=== PATIENT | female | born 1960 | race Caucasian/White ===

== ENCOUNTER 2018-11-22 04:52 | Inpatient (IN) ==
--- NOTE | 2018-10-18 14:39 | PAT Medication Instructions ---
Medication Instructions Date of Service October 18, 2018 Home Medications calcium carbonate-vitamin D3 [Calcium 600 + D(3)] 1 cap PO DAILY cholecalciferol (vitamin D3) [Vitamin D3] 2,000 unit PO DAILY ferrous sulfate [iron] 325 mg PO Q2D fish,bora,flax oils-om3,6,9no1 [Triple [place] 3-6-9] 1 cap PO DAILY levothyroxine 137 mcg PO QAM melatonin 3 mg PO HS PRN multivitamin 1 tab PO DAILY omeprazole 20 mg PO QAM sertraline 150 mg PO HS STOP taking 2 weeks before surgery (or as soon as possible if surgery is within 2 weeks) fish,bora,flax oils-om3,6,9no1 [Triple [place] 3-6-9] 1 cap PO DAILY DO NOT take the morning of surgery calcium carbonate-vitamin D3 [Calcium 600 + D(3)] 1 cap PO DAILY cholecalciferol (vitamin D3) [Vitamin D3] 2,000 unit PO DAILY ferrous sulfate [iron] 325 mg PO Q2D multivitamin 1 tab PO DAILY Take morning of surgery With a small sip of water, OTHERWISE NOTHING TO EAT OR DRINK AFTER MIDNIGHT: levothyroxine 137 mcg PO QAM omeprazole 20 mg PO QAM Take evening before surgery melatonin 3 mg PO HS PRN (if needed) sertraline 150 mg PO HS Other Notes If you have any questions please call us at [phone] or [phone] or [phone] or [phone]
--- NOTE | 2018-10-21 10:00 | Anesthesiology Consultation ---
Date of Service October 21, 2018 Assessment & Plan (1) Encounter for pre-operative examination: Chart Review Chart Review: Acceptable Risk for Surgery and Patient seen in Pre Admission Testing Teaching & Discussion Instructed NPO after midnight before surgery, except medications with 15 cc of water. Medication instructions provided according to the PAT guidelines. History Surgery Operation Date: 11/22/18 07:00 Proposed Procedures p Left Anterior Total Hip Arthroplasty - Frankie Kline DO Height/Weight Height: 5 ft 5.5 in Weight: 86.6 kg Allergies Allergy/AdvReac Type Severity Reaction Status Date / Time meloxicam Allergy Intermediate Rash Verified 10/14/18 11:47 Sulfa (Sulfonamide Allergy Unknown Rash Verified 10/14/18 11:47 Antibiotics) Medications Home Medications Medication Instructions Recorded Confirmed Last Taken calcium carbonate-vitamin D3 1 cap PO DAILY 10/14/18 10/14/18 Unknown [Calcium 600 + D(3)] cholecalciferol (vitamin D3) 2,000 unit PO DAILY 10/14/18 10/14/18 Unknown [Vitamin D3] ferrous sulfate [iron] 325 mg PO Q2D 10/14/18 10/14/18 Unknown fish,bora,flax oils-om3,6,9no1 1 cap PO DAILY 10/14/18 10/14/18 Unknown [Triple [place] 3-6-9] levothyroxine 137 mcg PO QAM 10/14/18 10/14/18 Unknown melatonin 3 mg PO HS PRN 10/14/18 10/14/18 Unknown multivitamin 1 tab PO DAILY 10/14/18 10/14/18 Unknown omeprazole 20 mg PO QAM 10/14/18 10/14/18 Unknown sertraline 150 mg PO HS 10/14/18 10/14/18 Unknown Past Medical History Medical History Anemia Anxiety Chronic back pain GERD (gastroesophageal reflux disease) Hypothyroidism Obesity Osteoarthritis Exercise / Class Metabolic Activity II 4-5 Yardwork/Stairs/Walk up hill (Limited by hip pain lately, but denies CP or SOB with 1 FOS, does daily at home) Past Family History Family History Uncle Family history of diabetes mellitus Grandfather (Paternal) FHx: prostate cancer Past Surgical History Surgical History History of bilateral tubal ligation History of breast biopsy (-) History of section History of colonoscopy History of esophagogastroduodenoscopy (EGD) Past Anesthesia History No Hx of Anesthesia Complications and No Family Hx of Anesthesia Complications History of PONV No Hx of PONV and No Hx of Motion Sickness Social History Smoking Status: Never smoker Do You Dip or Chew Tobacco: No Hx Alcohol Use: Yes Alcohol type: wine and hard liquor alcohol intake frequency: a few times a week Hx Substance Use: No substance use type: does not use Review of Systems Pt denies any recent chest pain, shortness of breath, palpitations, cough, fever or URI. Physical Exam Vital Signs BP: 117/77 P: 68bpm SPO2: 96% RA T: 97.9 F R: 16 ENMT Mouth: no dental restorations, no chipped teeth and no loose teeth Thyromental Distance: < 3.5 Finger Breadths (3) Mallampati Class: I Neck normal visual inspection; neck extension not limited Respiratory normal respiratory effort Auscultation: lungs clear to auscultation bilaterally Cardiovascular Rate/Rhythm: regular rate and regular rhythm Heart Sounds: no murmur Extremities: no edema Testing Laboratory Results 10/21/18 10:10 10/21/18 10:10 PT 10.9 Seconds (9.0-12.0) 10/21/18 10:10 INR 1.1 (0.9-1.1) 10/21/18 10:10 APTT 26.5 Seconds (21.0-31.0) 10/21/18 10:10 Urine Color Yellow 10/21/18 10:10 Urine Appearance Clear (Clear) 10/21/18 10:10 Urine pH 5.5 (4.5-7.5) 10/21/18 10:10 Ur Specific [place] 1.015 (1.000-1.030) 10/21/18 10:10 Urine Protein Negative (Negative) 10/21/18 10:10 Urine Glucose (UA) Negative (Negative) 10/21/18 10:10 Urine Ketones Negative (Negative) 10/21/18 10:10 Urine Nitrite Negative (Negative) 10/21/18 10:10 Ur Leukocyte Esterase Negative (Negative) 10/21/18 10:10 Blood Type A Positive 10/21/18 10:10 Antibody Screen NEGATIVE 10/21/18 10:10 Electrocardiogram Date: 10/21/18 Findings: + NSR @ (63bpm) *unconfirmed Chest X-Ray Date: 10/21/18 Findings: no mass IMPRESSION: 1. No acute cardiopulmonary findings. 2. Suspected hiatal hernia.
--- NOTE | 2018-10-21 10:26 | XRay Report ---
XR chest Pre-admission PA/Lat CLINICAL HISTORY: Preoperative evaluation. COMPARISON STUDY: No previous studies for comparison. FINDINGS: Lung volumes are normal. Lungs are clear. There is no pneumothorax or pleural effusion. Car diac size is normal. Mediastinal contours are normal. There is no evidence for pulmonary edema. Linea r left basilar opacity suggests atelectasis or scarring. Lower mediastinal contour abnormality favors a hiatal hernia. IMPRESSION: 1. No acute cardiopulmonary findings. 2. Suspected hiatal hernia. Electronically signed by: Joseph Mckeon M.D. 10/21/2018 10:24 AM
[2018-10-21 11:06] LABS: Appearance Urine Clear (Clear); Basophils # (auto) 0.01 K/uL (0-0.2); Basophils % (auto) 0.2 %; Bilirubin Urine Negative (Negative); Blood Urine Negative (Negative); Color Urine Yellow; Eosinophils # (auto) 0.12 K/uL (0-0.5); Eosinophils % (auto) 2.7 %; Glucose Urine UA Negative (Negative); Hematocrit (blood only) 37.3 % (37-47); Hemoglobin 12.8 g/dL (12.0-16.0); Ketones Urine Negative (Negative); Leukocyte Esterase Urine Negative (Negative); Lymphocytes # (auto) 1.47 K/uL (1.2-3.4); Lymphocytes % (auto) 33.6 %; Mean Corpuscular Hemoglobin 27.5 pg (25-34); Mean Corpuscular Hgb Conc 34.3 g/dL (32-36); Monocytes # (auto) 0.41 K/uL (0.11-0.59); Monocytes % (auto) 9.4 %; Neutrophils # (auto) 2.36 K/uL (1.4-6.5); Neutrophils % (auto) 54.1 %; Nitrite Urine Negative (Negative); Platelet Count 212 K/uL (130-400); Protein Urine Negative (Negative); RDW Coefficient of Variation 14.9 % (11.5-14.5); RDW Standard Deviation 43.7 fL (36.4-46.3); Red Blood Count 4.66 M/uL (4.2-5.4); Specific Gravity Urine 1.015 (1.000-1.030); Urobilinogen Urine Negative (Negative); White Blood Count 4.37 K/uL (4.8-10.8); pH Urine 5.5 (4.5-7.5)
[2018-10-21 11:12] LABS: BUN Creatinine Ratio 30.2 (10-20); Calcium 8.8 mg/dl (8.5-10.1); Creatinine Clr Calc Pharmacy 76.6 ml/min; Est GFR (African American) 82.8; Est GFR (Non-African American) 71.5; Potassium 4.1 mmol/L (3.5-5.1)
[2018-10-21 11:18] LABS: INR 1.1 (0.9-1.1); Partial Thromboplastin Time 26.5 Seconds (21.0-31.0); Prothrombin Time 10.9 Seconds (9.0-12.0)
--- NOTE | 2018-11-21 15:03 | History & Physical Report ---
Date of Service November 21, 2018 Assessment & Plan (1) Osteoarthritis of left hip: We will proceed with a left anterior total hip arthroplasty. Postoperatively she will be started on aspirin for DVT prophylaxis. She will be kept overnight for postoperative medical management. She plans to use [facility] upon discharge. Present on Admission?: Yes History of Present Illness Chief Complaint: Primary osteoarthritis of the left hip Primary Care Provider: Sohan Downey MD Shara is a pleasant 58-year-old female who is been complaining of chronic increasing left hip and groin pain. X-rays and clinical examination have been diagnostic for primary osteoarthritis of the left hip. After failing conservative treatment, she has elected to proceed with a left anterior total hip arthroplasty. Allergies Allergy/AdvReac Type Severity Reaction Status Date / Time meloxicam Allergy Intermediate Rash Verified 10/14/18 11:47 Sulfa (Sulfonamide Allergy Unknown Rash Verified 10/14/18 11:47 Antibiotics) Home Medications Home Medications Medication Instructions Recorded Confirmed Type calcium carbonate-vitamin D3 1 cap PO DAILY 10/14/18 10/14/18 History [Calcium 600 + D(3)] cholecalciferol (vitamin D3) 2,000 unit PO DAILY 10/14/18 10/14/18 History [Vitamin D3] ferrous sulfate [iron] 325 mg PO Q2D 10/14/18 10/14/18 History fish,bora,flax oils-om3,6,9no1 1 cap PO DAILY 10/14/18 10/14/18 History [Triple [place] 3-6-9] levothyroxine 137 mcg PO QAM 10/14/18 10/14/18 History melatonin 3 mg PO HS PRN 10/14/18 10/14/18 History multivitamin 1 tab PO DAILY 10/14/18 10/14/18 History omeprazole 20 mg PO QAM 10/14/18 10/14/18 History sertraline 150 mg PO HS 10/14/18 10/14/18 History Past Med/Surg History Medical History Anemia Anxiety Chronic back pain GERD (gastroesophageal reflux disease) Hypothyroidism Obesity Osteoarthritis Surgical History History of bilateral tubal ligation History of breast biopsy (-) History of section History of colonoscopy History of esophagogastroduodenoscopy (EGD) Family History Uncle Family history of diabetes mellitus Grandfather (Paternal) FHx: prostate cancer Social History Preferred Language: Bulgarian Communication Ability: Effective Adjunct Psychology Instructor Required: No Beliefs That Will Affect Care: None Current Living Situation: Spouse Feels Safe at Home: Yes Smoking Status: Never smoker Second Hand Exposure: Yes (grandparents smoked) ; Hx Alcohol Use: Yes Alcohol type: wine and hard liquor Hx Substance Use: No Review of Systems All systems reviewed & are unremarkable except as noted in HPI & below Physical Exam Constitutional: WD/WN, vitals as above Eyes: PERRL, conjunctivae normal, anicteric sclerae ENMT: external ear and nose normal, oropharynx normal Neck: trachea midline, no thyromegaly Respiratory: normal respiratory effort Cardiovascular: RRR, no murmur, no edema Gastrointestinal (Abdomen): normal bowel sounds, soft, nontender, no hepat osplenomegaly Musculoskeletal: Physical examination of the left hip reveals decreased range of motion with flexion, internal and external rotation. There is significant groin pain with forced internal rotation of the hip his leg lengths are essentially equal. Psychiatric: A+Ox3, euthymic affect Results & Data Diagnostic Findings Radiographs of the left hip and pelvis demonstrate advanced osteoarthritis with joint space narrowing osteophyte formation and [id number] articulation.
[2018-11-22] MEDS ORDERED: ROPIVACAINE 0.5% HCL/PF 150 MG, BUPIVACAINE 0.5% MPF 30 ML, EPINEPHrine 30MG/30ML (OR U... INFIL SCH (06:00)
[2018-11-22] MEDS ORDERED: LR 500ML BOLUS, THEN 15ML/HR IV SCH (06:00)
[2018-11-22] MEDS ORDERED: CEFAZOLIN 2000MG 2,000 MG/15 ML SYR IV SCH (06:00)
[2018-11-22] MEDS ORDERED: GABAPENTIN 300 MG CAP PO SCH (06:00)
[2018-11-22] MEDS ORDERED: TRANEXAMIC ACID 1,000 MG **IV Pre-op IV SCH (06:00)
[2018-11-22] MEDS ORDERED: ACETAMINOPHEN 500 MG TAB PO SCH (06:00)
[2018-11-22] MEDS ORDERED: LR 60ML/HR IV SCH (06:00)
[2018-11-22] MEDS ORDERED: FAMOTIDINE 20 MG TAB PO SCH (06:00)
[2018-11-22] MEDS ORDERED: BUPIVACAINE 0.5 % 5 MG/1 ML PF 10ML VIAL ONE (06:20)
[2018-11-22] MEDS ORDERED: TRANEXAMIC ACID 1,000 MG **IV Intra-op IV SCH (06:30)
[2018-11-22] MEDS ORDERED: MIDAZOLAM HCL 1 MG/ML 2ML VIAL ONE ×2 (06:38→06:56)
[2018-11-22] MEDS ORDERED: fentaNYL citrate 100 MCG/2 ML VIAL ONE (06:38)
[2018-11-22] MEDS ORDERED: PROPOFOL IV EMULSION 10 MG/ML 20 ML VIAL IV ONE (06:39)
[2018-11-22] MEDS ORDERED: LIDOCAINE HCL 2% 2 ML VIAL/AMP(20MG/ML) INFIL ONE (06:39)
[2018-11-22] MEDS ORDERED: ORTHO JOINT ANESTHETIC ONE (06:43)
--- NOTE | 2018-11-22 06:49 | History & Physical Bridge Note ---
Date of Service November 22, 2018 History & Physical Bridge Note I have examined the patient, reviewed the History & Physical and in the interval since the performance of the History & Physical I have noted the following changes of clinical significance: no changes noted
[2018-11-22] MEDS ORDERED: ePHEDrine sulfate 50 MG/ML AMP IV PRN (06:52)
[2018-11-22] MEDS ORDERED: fentaNYL citrate 100 MCG/2 ML VIAL IV PRN (06:52)
[2018-11-22] MEDS ORDERED: ONDANSETRON INJ 2 MG/ML 2 ML VIAL IV PRN ×2 (06:52→10:44)
[2018-11-22] MEDS ORDERED: ATROPINE SULFATE 0.1 MG/ML 10ML SYR IV PRN (06:52)
--- NOTE | 2018-11-22 08:08 | Operative Report ---
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 X-rays and clinical examination were diagnostic for primary osteoarthritis of the left hip. After failing conservative treatment, she elected to proceed with a left total hip arthroplasty. Description of Procedure Implants used Biomet Taperloc total hip arthroplasty system with a size 6 standard offset Taperloc stem, a 50 mm G7 cup with a 25mm screw, an E1 polyethylene liner, a 36 mm ceramic head with a 0 neck. Patient arrived at the hospital for the above procedure. They were seen in the preoperative holding area and the operative extremity was identified and signed. They were given a spinal anesthetic. They were given a preoperative antibiotic and TXA. They were taken back To the operating room and laid on the table in the supine position. The leg was brought out through a Puristst leg positioner. The hip was then prepped and draped in sterile fashion. A timeout was done and the patient in upper extremities properly identified. An anterior approach was used. Dissection was taken down through the fascia and the tensor muscle belly was retracted laterally and the rectus was retracted medially. The circumflex vessels were identified and ligated. The capsule was then incised and tagged for later repair. The femoral neck was then cut and the femoral head was removed. The acetabulum was exposed. Time was spent doing a complete circumferential labral release. Sequential reaming of the acetabulum up to a size 49 reamer was done. Final reamings were done under fluoroscopy to ensure appropriate version. A Biomet 50 mm G7 cup was then impacted into place. A single 25 mm screw was placed. The E1 polyethylene liner was then snapped into place. Surrounding soft tissues were then injected with 100 cc of an orthopedic pain control cocktail. The proximal femur was then exposed. Sequential broaching up to a size 6 broach was done. Off that broach a size 36 head with a 0 neck was trialed. The hip was reduced and fluoroscopic images showed anatomic alignment of the implants in acceptable length. The broach was removed. The final size 6 standard offset Taperloc stem was then impacted into place. A ceramic 36 mm head with a 0 neck was then impacted into place in the hip was reduced. Final fluoroscopic images showed anatomic reduction of the hip. The capsule was then closed with #1 Vicryl suture. A dilute betadyne lavage was then done for 3 minutes. The joint was then irrigated with normal saline solution. The fascia was closed with #1 PDS suture. Skin was closed with 2-0 Vicryl, kanu, and a Pamela VAC dressing. The patient was then transferred to a hospital bed and taken to the post anesthesia care unit in stable condition. They tolerated the procedure well. I attest to the content of the Intraoperative Record and any orders documented therein. Any exceptions are noted below.
[2018-11-22] MEDS ORDERED: PHENYLEPHRINE 100MCG/ML 5ML SYR ONE (08:49)
--- NOTE | 2018-11-22 09:04 | Fluoroscopy Report ---
FL hip LT 1V CLINICAL HISTORY: LEFT ANTERIOR HIP COMPARISON STUDY: Pelvis and left hip radiographs August 09, 2018. FLUOROSCOPY TIME: 19 seconds. FLUOROSCOPIC IMAGES: 2. FINDINGS: These images demonstrate expected findings during a total left hip arthroplasty. The hardwa re is intact. No fracture is visualized by fluoroscopy. There are no unexpected radiopaque foreign zaina dies. IMPRESSION: Expected findings during total left hip arthroplasty. Electronically signed by: Joseph Mckeon M.D. 11/22/2018 9:02 AM
--- NOTE | 2018-11-22 09:17 | XRay Report ---
XR hip 1V LT w pelvis CLINICAL HISTORY: Total left hip arthroplasty. COMPARISON: Pelvis and left hip radiographs August 09, 2018. FINDINGS: Alignment of the total left hip arthroplasty is anatomic. There is no fracture or unexpect ed radiopaque foreign body. Skin kanu are noted. Right acetabulum is shallow. There is severe join t space narrowing and osteophytosis of the right hip. IMPRESSION: 1. Expected findings following total left hip arthroplasty. 2. Right hip osteoarthritis with shallow acetabulum. Electronically signed by: Joseph Mckeon M.D. 11/22/2018 9:16 AM
--- NOTE | 2018-11-22 09:54 | Anesthesiology Progress Note ---
Date of Service November 22, 2018 Anesthesia Post Procedure Vital Signs Vital Signs: Temp Pulse Pulse Resp BP Pulse Ox 11/22/18 09:45 49 L 15 90/66 L 100 11/22/18 09:35 51 L 18 93/52 L 100 11/22/18 09:25 55 L 14 104/50 L 100 11/22/18 09:15 46 L 17 94/53 L 100 11/22/18 09:10 56 L 21 98 11/22/18 09:00 55 L 20 92/55 L 99 11/22/18 08:50 54 L 20 91/47 L 100 11/22/18 08:43 97.3 F L 55 L 15 96/54 L 97 11/22/18 05:46 97.9 F 67 18 133/80 96 Pain Intensity Left Hip: Pain Intensity: 6 Transfer of Care Handoff Completed per policy Notes Mental Status: alert / awake / arousable and participated in evaluation Patient Amnestic to Procedure: Yes Nausea / Vomiting: adequately controlled Pain: adequately controlled Airway Patency, RR, SpO2: stable & adequate BP & HR: stable & adequate Hydration State: stable & adequate Neuraxial Anesthesia: was administered and sensory block is resolving Anesthetic Complications: no major complications apparent and Pt Satisfied with anesthetic care
[2018-11-22] MEDS ORDERED: METOCLOPRAMIDE HCL INJ 5 MG/ML 2 ML VIAL IV PRN (10:44)
[2018-11-22] MEDS ORDERED: HYDROmorphone INJ 0.5 MG/0.5 ML SYR IV PRN (10:44)
[2018-11-22] MEDS ORDERED: SODIUM CHLORIDE 0.9% 1000ML 1,000 ML IV SCH (10:44)
[2018-11-22] MEDS ORDERED: MAGNESIUM HYDROXIDE SUSP 30 ML UDC PO PRN (10:44)
[2018-11-22] MEDS ORDERED: OXYCODONE HCL IR 5 MG TAB (IMMEDIATE RELEASE) PO PRN (10:44)
[2018-11-22] MEDS ORDERED: BISACODYL 10 MG SUPP PR PRN (10:44)
[2018-11-22] MEDS ORDERED: NALOXONE HCL 0.4 MG/1 ML VIAL/CARP IV PRN (10:44)
[2018-11-22] MEDS ORDERED: FERROUS SULFATE 325 MG TAB PO SCH (11:00)
[2018-11-22] MEDS: KETOROLAC 30 MG/ML VIAL IV SCH ×3 (12:32→23:48)
[2018-11-22] MEDS: ACETAMINOPHEN 500 MG TAB PO SCH ×2 (14:16→21:01)
[2018-11-22] MEDS: CEFAZOLIN 2000MG 2,000 MG/15 ML SYR IV SCH ×2 (16:47→23:48)
[2018-11-22] MEDS: ASPIRIN 81 MG ECTAB PO SCH (21:00)
[2018-11-22] MEDS ORDERED: SENNA 8.6 MG TAB PO SCH (21:00)
[2018-11-22] MEDS ORDERED: SERTRALINE HCL 100 MG TABLET PO SCH (21:00)
[2018-11-22] MEDS: DOCUSATE SODIUM 100 MG CAP PO SCH (21:01)
[2018-11-23] MEDS: KETOROLAC 30 MG/ML VIAL IV SCH (05:39)
[2018-11-23] MEDS: ACETAMINOPHEN 500 MG TAB PO SCH (05:39)
[2018-11-23] MEDS ORDERED: LEVOTHYROXINE SODIUM 137 MCG TABLET PO SCH (06:30)
[2018-11-23 06:38] LABS: Basophils # (auto) 0.01 K/uL (0-0.2); Basophils % (auto) 0.2 %; Eosinophils # (auto) 0.02 K/uL (0-0.5); Eosinophils % (auto) 0.4 %; Hematocrit (blood only) 34.2 % (37-47); Hemoglobin 11.4 g/dL (12.0-16.0); Immature Granulocytes # (auto) 0.01 K/uL (0.00-0.02); Immature Granulocytes % (auto) 0.2 %; Lymphocytes # (auto) 1.33 K/uL (1.2-3.4); Lymphocytes % (auto) 24.4 %; Mean Corpuscular Hemoglobin 26.9 pg (25-34); Mean Corpuscular Hgb Conc 33.3 g/dL (32-36); Mean Corpuscular Volume 80.7 fL (80-100); Mean Platelet Volume 9.5 fL (7.4-10.4); Monocytes # (auto) 0.54 K/uL (0.11-0.59); Monocytes % (auto) 9.9 %; Neutrophils # (auto) 3.55 K/uL (1.4-6.5); Neutrophils % (auto) 64.9 %; Platelet Count 173 K/uL (130-400); RDW Coefficient of Variation 14.7 % (11.5-14.5); RDW Standard Deviation 43.4 fL (36.4-46.3); Red Blood Count 4.24 M/uL (4.2-5.4); White Blood Count 5.46 K/uL (4.8-10.8)
[2018-11-23 07:12] LABS: Calcium 8.6 mg/dl (8.5-10.1); Creatinine Clr Calc Pharmacy 76.4 ml/min; Est GFR (Non-African American) 72.5; Potassium 3.9 mmol/L (3.5-5.1)
[2018-11-23] MEDS: DOCUSATE SODIUM 100 MG CAP PO SCH (08:23)
[2018-11-23] MEDS: ASPIRIN 81 MG ECTAB PO SCH (08:23)
--- NOTE | 2018-11-23 08:27 | Orthopedic Progress Note ---
Date of Service November 23, 2018 Assessment & Plan (1) Osteoarthritis of left hip: Overall she is doing very well. She is not having much pain in the left hip. She will be seen by physical therapy today for ambulation and range of motion exercises. She is on aspirin for DVT prophylaxis. She will be discharged home later this morning with [facility]. She will follow-up with orthopedics in 2 weeks. Present on Admission?: Yes Subjective Savanna was seen and examined at bedside this morning. Overall she is doing very well. She is happy with her progress. She is gotten the feeling back in her leg. She still is a little numbness on the top of her quad but she is been ambulating. She has no complaints. Physical Exam Musculoskeletal: On physical examination of the left hip, the Pamela VAC dressings to suction. Her leg lengths are equal. She has active dorsiflexion and plantarflexion of her left ankle. Sensations intact. Results & Data Vital Signs (Past 12 Hours) Vital Signs Temp Pulse Resp BP Pulse Ox 11/23/18 07:46 36.7 C 67 16 112/74 97 11/23/18 03:23 37.1 C 69 16 129/78 96 11/22/18 23:12 36.7 C 68 16 114/73 97 Laboratory Results H & H 10/21/18 11/23/18 Range/Units 10:10 06:16 Hgb 12.8 11.4 L (12.0-16.0) g/dL Hct 37.3 34.2 L (37-47) % Coagulation 10/21/18 Range/Units 10:10 INR 1.1 (0.9-1.1) Diagnostic Findings Postoperative x-rays of the left hip show the prosthesis to be in anatomic a lignment without any evidence of fracture, dislocation, or loosening. PG Care Time/CCT Total # of Minutes Spent Total Time Spent with Patient: Total time spent is greater than 50% in coordination of care (as documented) at patient's floor/unit and/or counseling patient:
--- NOTE | 2018-11-23 08:29 | Discharge Summary ---
Date of Service November 23, 2018 Admission HPI Per Admitting Provider Shara is a pleasant 58-year-old female who is been complaining of chronic increasing left hip and groin pain. X-rays and clinical examination have been diagnostic for primary osteoarthritis of the left hip. After failing conservative treatment, she has elected to proceed with a left anterior total hip arthroplasty. Principal Diagnosis Left total hip arthroplasty Discharge Data Allergies Allergy/AdvReac Type Severity Reaction Status Date / Time meloxicam Allergy Intermediate Rash Verified 11/22/18 05:58 Sulfa (Sulfonamide Allergy Unknown Rash Verified 11/22/18 05:58 Antibiotics) Consultations 11/23/18 08:00 Consult Case Management - Discharge Planning Routine Procedures Performed Operation Date: 11/22/18 07:00 Actual Procedures p Left Anterior Total Hip Arthroplasty(Left) - Frankie Kline DO Ordered Studies 11/22/18 07:00 FL fluoroscopy <1hr Routine FL hip LT 1V Routine Hospital Course (1) Osteoarthritis of left hip: On November 22, 2018 Savanna arrived at [facility] and underwent a left anterior total hip arthroplasty without complication. She had a spinal anesthetic. Postoperatively she was started on aspirin for DVT prophylaxis and discharged to general orthopedic floors. Her hospital course was uneventful. On postop day #1 her H&H was stable and her pain was well controlled. She was able to participate well with physical therapy. She was then discharged home with [facility]. She will follow-up with orthopedics in 2 weeks. Total Time Total Time Spent Total Time Spent (In Minutes): 20 Discharge Plan Discharge Items Patient Disposition: Home - Home Health Services Reason For Visit: Left Hip Degenerative Joint Disease Discharge Diagnosis: Left total hip arthroplasty Activity: As commented below Non-emergency contact: Surgeon Call non-emergency contact if: your wound has increased redness and your wound has increased drainage Follow-up/Referrals: Sohan Downey MD [Primary Care Provider] - Diet: Regular Addtl Attending Provider Instructions: Activity and Therapy Recommendations: * If you are using [facility] then therapy will be provided at your home until they feel you have accomplished all of your goals. * If you are using [facility] then Physical Therapy will be provided until they feel you are ready to start Outpatient Physical Therapy. * If you are not using home therapy then Outpatient Physical Therapy should start about 3-5 days from your day of surgery. Therapy will last about 6-10 weeks * You were shown a series of exercises in the hospital. Do these exercises three times each day including the exercises you were shown in physical therapy. * Get up and walk several times each day.~ For the first four weeks, try not to stand or walk for more than one hour at a time. If you do stand or walk for more than one hour, you will not hurt anything, but your leg will likely swell.~~ * As you feel comfortable, you may change from the walker or crutches to a cane and~then to independent walking. Medications: * Narcotic You will likely be sent home from the hospital with a prescription for the narcotic pain medication that worked best throughout your stay. * Aspirin Most patients will be required to take Aspirin 81mg twice a day for 6 weeks after surgery. This is obtained [id number] and a prescription is not necessary. * Other medications may be prescribed for specific circumstances. If you have any questions, please call the office at . * Resume previous home medications unless otherwise instructed TEDs/Elastic Stockings: The white elastic stockings help limit swelling and prevent blood clots from forming in your legs. The more you wear them, the more they work. Wear them for six weeks. Dressing Care: You will likely have a purple VAC dressing after surgery. This dressing will keep the incision dry and promote early healing. After about 7 days the batteries will wear out and the VAC will lose suction. Simply remove the dressing at that time and throw everything away, including the small suction machine. Then, you may leave the kanu open to air or cover them with a dry dressing so they do not rub on your pants. The kanu will be removed at your 2 week follow-up appointment. Showering: You may shower immediately with the purple VAC dressing. Let the shower spray hit your opposite side and slowly pat the plastic dry. Do not soak the dressing. After the dressing is removed you may shower normally with the kanu exposed. Let soapy water run over the kanu and pat them dry. Things To Watch For: * Drainage from the incision site that occurs more than one week after your surgery. * Increased redness at the incision site. * Fever above 102 degrees Fahrenheit. * Unusual chest pain or shortness of breath. * Call [facility] at with any of the above problems Follow-Up Visit: Follow-up with Dr. Kline 2-3 weeks after your day of surgery. An appointment was probably scheduled when you signed-up for surgery in the office. If you have any questions call Office Instructions: More detailed instructions as well as Frequently Asked Questions were provided in a folder by our office when you signed-up for surgery. Please review these instructions when you get home. If you have any further questions or concerns, please feel free to call the office at [phone] Pending Studies at Discharge: No Stand-Alone Forms: My [facility] Medications and DC Order Prescriptions: New oxycodone 5 mg Tablet 5 mg PO Q4H PRN (Reason: pain) Qty: 30 RF: 0 aspirin [Ecotrin Low Strength] 81 mg Tablet,Delayed Release (Dr/Ec) 81 mg PO BID Qty: 84 RF: 0 Continued multivitamin Tablet 1 tab PO DAILY RF: 0 levothyroxine 137 mcg Tablet 137 mcg PO QAM RF: 0 sertraline 100 mg Tablet 150 mg PO HS RF: 0 ferrous sulfate [iron] 325 mg (65 mg iron) Tablet 325 mg PO Q2D RF: 0 Calcium 600 + D(3) 600 mg calcium- 200 unit Capsule 1 cap PO DAILY RF: 0 omeprazole 20 mg Tablet,Delayed Release (Dr/Ec) 20 mg PO QAM RF: 0 cholecalciferol (vitamin D3) [Vitamin D3] 2,000 unit Capsule 2,000 unit PO DAILY RF: 0 melatonin 3 mg Capsule 3 mg PO HS PRN (Reason: Sleep) RF: 0 fish,bora,flax oils-om3,6,9no1 [Triple [place] 3-6-9] 400-400-400 mg Capsule 1 cap PO DAILY RF: 0 Discharge Orders: Discharge Order (Routine); Ordered 11/23/18 Ordered By: Frankie Kline Admission Data Admit Date/Time: 11/22/18 08:44 Attending Provider: Frankie Kline Admit Provider: Frankie Kline Primary Care Provider: Sohan Downey
[2018-11-23] MEDS ORDERED: PANTOprazole 40 MG TAB PO SCH (09:00)
[2018-11-23] MEDS ORDERED: MULTIVITAMIN TAB PO SCH (09:00)
[2018-11-23] MEDS ORDERED: CHOLECALCIFEROL 1,000 UNITS TAB PO SCH (09:00)
== END 2018-11-23 11:34 | disposition home health service (06) | DRG 470 ==
LOC: ASU 04:52 → 3E 08:44

== ENCOUNTER 2019-08-22 09:52 | Observation (INO) ==
--- NOTE | 2019-08-16 13:49 | Anesthesiology Consultation ---
Date of Service August 16, 2019 Assessment & Plan (1) Encounter for pre-operative examination: Per nursing phone assessment on 08/14: Travel screen- Lives in [facility]. Travel to [facility] to visit parents. No known COVID-19 positive contacts. No current COVID-19 related symptoms. Patient scheduled for preop protocol COVID-19 testing 08/17 (location [facility]). Awaiting results. - S/P Left anterior CHELSEA: 11/22/18: SAB x1 attempt at L3-L4 at [facility] Chart Review Chart Review: Acceptable Risk for Surgery (pending COVID testing) and Patient NOT seen in Pre Admission Testing History Surgery Operation Date: 07/18/19 08:30 Proposed Procedures p Right Anterior Total Hip Arthroplasty - Frankie Kline DO Operation Date: 08/22/19 10:10 Proposed Procedures p Right Anterior Total Hip Arthroplasty - Frankie Kline DO Height/Weight Height: 5 ft 5 in Weight: 92.986 kg Allergies Allergy/AdvReac Type Severity Reaction Status Date / Time meloxicam Allergy Mild Rash Verified 08/15/19 10:28 Sulfa (Sulfonamide Allergy Mild Rash Verified 08/15/19 10:28 Antibiotics) Medications Home Medications Medication Instructions Recorded Confirmed Last Taken Calcium 600 + D(3) 1 cap PO DAILY 10/14/18 08/15/19 11/11/18 12:00 cholecalciferol (vitamin D3) 2,000 unit PO DAILY 10/14/18 08/15/19 11/11/18 12:00 [Vitamin D3] fish,bora,flax oils-om3,6,9no1 1 cap PO DAILY 10/14/18 08/15/19 11/11/18 12:00 [Triple [place] 3-6-9] levothyroxine 137 mcg PO QAM 10/14/18 08/15/19 11/11/18 12:00 melatonin 3 mg PO HS PRN 10/14/18 08/15/19 11/11/18 12:00 multivitamin 1 tab PO DAILY 10/14/18 08/15/19 11/11/18 12:00 omeprazole 20 mg PO QAM 10/14/18 08/15/19 11/11/18 12:00 sertraline 150 mg PO HS 10/14/18 08/15/19 11/11/18 12:00 amoxicillin 500 mg tablet 2,000 mg PO ONCE #4 tab 02/18/19 08/15/19 Unknown Past Medical History Medical History Anemia Anxiety Chronic back pain Environmental allergies GERD (gastroesophageal reflux disease) Hypothyroidism Obesity Osteoarthritis Past Family History Family History Uncle Family history of diabetes mellitus Grandfather (Paternal) FHx: prostate cancer Past Surgical History Surgical History History of bilateral tubal ligation History of breast biopsy (-) History of section History of colonoscopy History of esophagogastroduodenoscopy (EGD) History of tooth extraction History of total hip arthroplasty LEFT Social History Smoking Status: Never smoker Do You Dip or Chew Tobacco: No Hx Alcohol Use: Yes Alcohol type: wine and hard liquor alcohol intake frequency: a few times a week Hx Substance Use: No substance use type: does not use Testing Laboratory Results 08/06/19 SODIUM 140 POTASSIUM 4.0 CHLORIDE 107 CO2 30 BUN 20 CREATININE 0.97 GLUCOSE 89 PT 10.9 PTT 27.9 INR 1.0 11/23/18 WBC 5.46 H/H 11.4/34.2 PLT 173 Electrocardiogram Date: 08/06/19 Findings: + NSR @ (73) Chest X-Ray Date: 08/06/19 The heart is normal in size. There is a retrocardiac opacity consistent with a hiatal hernia. There is no failure. There is no focal pulmonary consolidation. There is a stable linear area of atelectasis/scarring at the left lung base. IM PRESSION: No active disease in the chest.
--- NOTE | 2019-08-21 14:22 | History & Physical Report ---
Date of Service August 21, 2019 Assessment & Plan (1) Osteoarthritis of right hip: We will proceed with a right anterior total hip arthroplasty. Postoperatively she will be started on aspirin for DVT prophylaxis and kept overnight in the hospital for postoperative medical management. She plans to use [facility] upon discharge. Present on Admission?: Yes History of Present Illness Chief Complaint: Primary osteoarthritis of the right hip Primary Care Provider: Sohan Downey MD Shara is a pleasant 59-year-old female who has been dealing with chronic bilateral hip pain. I did a left total hip arthroplasty on her in November 2018 and she did very well with that. Unfortunately she is still having a lot of right hip pain. X-rays and clinical examination have been diagnostic for primary osteoarthritis of the right hip. After failing conservative treatment, she has elected to proceed with a right anterior total hip arthroplasty. Allergies Allergy/AdvReac Type Severity Reaction Status Date / Time meloxicam Allergy Mild Rash Verified 08/15/19 10:28 Sulfa (Sulfonamide Allergy Mild Rash Verified 08/15/19 10:28 Antibiotics) Home Medications Home Medications Medication Instructions Recorded Confirmed Type Calcium 600 + D(3) 1 cap PO DAILY 10/14/18 08/15/19 History cholecalciferol (vitamin D3) 2,000 unit PO DAILY 10/14/18 08/15/19 History [Vitamin D3] fish,bora,flax oils-om3,6,9no1 1 cap PO DAILY 10/14/18 08/15/19 History [Triple [place] 3-6-9] levothyroxine 137 mcg PO QAM 10/14/18 08/15/19 History melatonin 3 mg PO HS PRN 10/14/18 08/15/19 History multivitamin 1 tab PO DAILY 10/14/18 08/15/19 History omeprazole 20 mg PO QAM 10/14/18 08/15/19 History sertraline 150 mg PO HS 10/14/18 08/15/19 History amoxicillin 500 mg tablet 2,000 mg PO ONCE #4 tab 02/18/19 08/15/19 Rx Past Med/Surg History Medical History Anemia Anxiety Chronic back pain Environmental allergies GERD (gastroesophageal reflux disease) Hypothyroidism Obesity Osteoarthritis Surgical History History of bilateral tubal ligation History of breast biopsy (-) History of section History of colonoscopy History of esophagogastroduodenoscopy (EGD) History of tooth extraction History of total hip arthroplasty LEFT Family History Uncle Family history of diabetes mellitus Grandfather (Paternal) FHx: prostate cancer Social History Preferred Language: Citizen Of [place] Communication Ability: Effective Crepe Maker Required: No Beliefs That Will Affect Care: None Current Living Situation: Spouse Feels Safe at Home: Yes Smoking Status: Never smoker Second Hand Exposure: Yes ( A CHILD) ; Hx Alcohol Use: Yes Alcohol type: wine and hard liquor Hx Substance Use: No Review of Systems Review of Systems: All systems reviewed & are unremarkable except as noted in HPI & below Physical Exam Constitutional: WD/WN, vitals as above Eyes: PERRL, conjunctivae normal, anicteric sclerae ENMT: external ear and nose normal, oropharynx normal Neck: trachea midline, no thyromegaly Respiratory: normal respiratory effort Cardiovascular: RRR, no murmur, no edema Gastrointestinal (Abdomen): normal bowel sounds, soft, nontender, no hepatosplenomegaly Musculoskeletal: Physical examination of the right hip reveals decreased range of motion with flexion, internal and external rotation. There is significant groin pain with forced internal rotation of the hip his leg lengths are essentially equal. Psychiatric: A+Ox3, euthymic affect Results & Data Results & Data ([facility]) Diagnostic Findings Radiographs of the right hip and pelvis demonstrate advanced osteoarthritis with joint space narrowing osteophyte formation and [id number] articulation. PG Care Time/CCT Total # of Minutes Spent Total Time Spent with Patient: Total time spent is greater than 50% in coordination of care (as documented) at patient's floor/unit and/or counseling patient: Coding Level of Care Code 03101 Initial Inpt Care Lvl 3 Diagnoses Osteoarthritis of right hip M16.11
[~2019-08-22 09:52] MED LIST: ACETAMINOPHEN 500 MG TAB PO SCH; CEFAZOLIN 2000MG 2,000 MG/15 ML SYR IV SCH; FAMOTIDINE 20 MG TAB PO SCH; GABAPENTIN 600 MG DOSE PO SCH; LR 500ML BOLUS, THEN 15ML/HR IV SCH; LR 60ML/HR IV SCH; ROPIVACAINE 0.5% HCL/PF 150 MG, BUPIVACAINE 0.5% MPF 30 ML, EPINEPHrine 30MG/30ML (OR U... INFIL SCH; TRANEXAMIC ACID 1,000 MG **IV Intra-op IV SCH; TRANEXAMIC ACID 1,000 MG **IV Pre-op IV SCH; dexAMETHasone 4 MG TAB PO SCH
[2019-08-22] MEDS ORDERED: BUPIVACAINE 0.5 % 5 MG/1 ML PF 10ML VIAL ONE (10:06)
--- NOTE | 2019-08-22 10:08 | History & Physical Bridge Note ---
Date of Service August 22, 2019 History & Physical Bridge Note I have examined the patient, reviewed the History & Physical and in the interval since the performance of the History & Physical I have noted the following changes of clinical significance: no changes noted
[2019-08-22] MEDS ORDERED: ONDANSETRON INJ 2 MG/ML 2 ML VIAL ONE ×2 (10:54→12:56)
[2019-08-22] MEDS ORDERED: LIDOCAINE HCL 2% 2 ML VIAL/AMP(20MG/ML) INFIL ONE (10:54)
[2019-08-22] MEDS ORDERED: PROPOFOL IV EMULSION 10 MG/ML 20 ML VIAL IV ONE (10:54)
[2019-08-22] MEDS ORDERED: MIDAZOLAM HCL 1 MG/ML 2ML VIAL ONE ×2 (10:55)
[2019-08-22] MEDS ORDERED: fentaNYL citrate 100 MCG/2 ML VIAL ONE (10:55)
[2019-08-22] MEDS ORDERED: ePHEDrine sulfate 50 MG/ML AMP IV PRN (11:11)
[2019-08-22] MEDS ORDERED: ONDANSETRON INJ 2 MG/ML 2 ML VIAL IV PRN ×2 (11:11→16:12)
[2019-08-22] MEDS ORDERED: ATROPINE SULFATE 0.1 MG/ML 10ML SYR IV PRN (11:11)
[2019-08-22] MEDS ORDERED: HYDROmorphone INJ 1 MG/ML SYRINGE IV PRN (11:11)
[2019-08-22] MEDS ORDERED: fentaNYL citrate 100 MCG/2 ML VIAL IV PRN (11:11)
[2019-08-22] MEDS ORDERED: DEXAMETHASONE SOD INJ 4 MG/ML VIAL ONE (12:56)
--- NOTE | 2019-08-22 14:00 | Operative Report ---
PG Post Operative Report Pre & Post Diagnosis Operation Date: 07/18/19 08:30 <No data on this case meets the specified criteria> Operation Date: 08/22/19 12:00 Pre-Op Diagnosis: RIGHT HIP DEGENERATIVE JOINT DISEASE Post-Op Diagnosis: RIGHT HIP DEGENERATIVE JOINT DISEASE I identified the patient and participated in the time-out.: Yes Procedure Operation Date: 07/18/19 08:30 <No data on this case meets the specified criteria> Operation Date: 08/22/19 12:00 Actual Procedures p Right Anterior Total Hip Arthroplasty(Right) - Frankie Kline DO Surgeon Frankie Kline DO Jukebox Checker Frankie Ward PAC Estimated Blood Loss 300 Findings Consistent with Post-Op Diagnosis Specimens Right femoral head Complications none Disposition Disposition: Recovery Room Indications Savanna is a pleasant 59-year-old female who is been dealing with chronic bilateral hip pain. X-rays and clinical examination are diagnostic for primary osteoarthritis of both hips. She underwent a left total hip arthroplasty in November 2018 and did very well. She has now elected to proceed with a right anterior total hip arthroplasty. Description of Procedure Implants used I used a Biomet Taperloc total hip arthroplasty system with a size 8 standard offset micro Taperloc stem, a 50 mm G7 cup with a 25mm screw, an E1 polyethylene liner, a 36 mm ceramic head with a +3 neck. Savanna arrived at the hospital for the above procedure. She was seen in the preoperative holding area and the operative extremity was identified and signed. She was given a spinal anesthetic, a preoperative antibiotic, and TXA. She was then taken back to the operating room and laid on the table in the supine position. She was given basic sedation. The operative leg was secured to a Puristst leg positioner. The hip was then prepped and draped in sterile fashion. A timeout was done and the patient and the operative extremity was properly identified. An anterior approach was used. Dissection was taken down through the fascia and the tensor muscle belly was retracted laterally and the rectus was retracted medially. The circumflex vessels were identified and ligated. The capsule was then incised and tagged for later repair. The femoral neck was then cut and the femoral head was removed. The acetabulum was exposed. Time was spent doing a complete circumferential labral release. Sequential reaming of the acetabulum up to a size 49 reamer was done. Final reamings were done under fluoroscopy to ensure appropriate version. A Biomet 50 mm G7 cup was then impacted into place. A single 25 mm screw was placed. The E1 polyethylene liner was then snapped into place. Surrounding soft tissues were then injected with 100 cc of an orthopedic pain control cocktail. The proximal femur was then exposed. Sequential broaching up to a size 8 broach was done. Off that broach a size 36 head with a 3 neck was trialed. The hip was reduced and fluoroscopic images showed anatomic alignment of the implants in acceptable length. The broach was removed. The final size 8 standard offset micro Taperloc stem was then impacted into place. A ceramic 36 mm head with a +3 neck was then impacted onto the stem and the hip was reduced. Final fluoroscopic images showed anatomic alignment of the hip. The capsule was then closed with #1 Vicryl suture. A dilute betadyne lavage was then done for 3 minutes. The joint was then irrigated with normal saline solution. The fascia was closed with #1 PDS suture. Skin was closed with 2-0 Vicryl, kanu, and a Pamela VAC dressing. She was then transferred to a hospital bed and taken to the post anesthesia care unit in stable condition. She tolerated the procedure well. Frankie Ward PA-C, was present for the entire procedure. He was critical for patient positioning, prepping, draping, retraction exposure, wound closure and application of sterile dressing. I attest to the content of the Intraoperative Record and any orders documented therein. Any exceptions are noted below.
--- NOTE | 2019-08-22 14:18 | Fluoroscopy Report ---
FL hip RT 1V CLINICAL HISTORY: RIGHT ANTERIOR TOTAL HIP ARTHROPLASTY COMPARISON STUDY: Pelvis radiograph January 08, 2019. FLUOROSCOPY TIME: 19 seconds. FLUOROSCOPIC IMAGES: 2 FINDINGS: Fluoroscopy was provided during total right hip arthroplasty. There is an acetabular screw. Hardware is intact. There are no unexpected radiopaque foreign bodies. No fracture is visualized. IMPRESSION: Fluoroscopy provided during total right hip arthroplasty. ACT 112: Negative or not required by law. Electronically signed by: Joseph Mckeon M.D. 08/22/2019 2:17 PM
--- NOTE | 2019-08-22 14:42 | XRay Report ---
XR hip 1V RT w pelvis HISTORY: 59 years-old Female IN PACU - A/P PELVIS and LATERAL HIP right hip total joint arthroplast y COMPARISON: Pelvis radiograph 01/08/2019 TECHNIQUE: Portable AP view of the pelvis FINDINGS: Unchanged left hip total joint arthroplasty. Right hip total joint arthroplasty demonstrates satisfac tory alignment. No acute fracture, dislocation or opaque foreign body. Lateral skin kanu are noted . Surgical drainage catheter with expected postoperative soft tissue swelling and deep tissue air. IMPRESSION: Satisfactory alignment of the right hip total joint arthroplasty. ACT 112: Negative or not required by law. The above report was generated using voice recognition software. It may contain grammatical, syntax o r spelling errors. Electronically signed by: Colin Ellison M.D. 08/22/2019 2:40 PM
--- NOTE | 2019-08-22 15:38 | Anesthesiology Progress Note ---
Date of Service August 22, 2019 Anesthesia Post Procedure Vital Signs Vital Signs: Temp Pulse Pulse Resp BP BP Pulse Ox 08/22/19 15:30 59 L 16 102/71 94 08/22/19 15:20 62 19 103/63 97 08/22/19 15:10 59 L 18 96/57 L 95 08/22/19 15:00 56 L 17 93/67 L 98 08/22/19 14:50 64 20 99/62 L 96 08/22/19 14:40 65 18 119/64 98 08/22/19 14:30 55 L 16 97/63 L 100 08/22/19 14:20 36.6 C 65 18 102/53 L 100 08/22/19 10:54 37.0 C 67 20 146/79 H 97 Pain Intensity Head: Pain Intensity: 2 Transfer of Care Handoff Completed per policy Notes Mental Status: alert / awake / arousable Patient Amnestic to Procedure: Yes Nausea / Vomiting: adequately controlled Pain: adequately controlled Airway Patency, RR, SpO2: stable & adequate BP & HR: stable & adequate Hydration State: stable & adequate Neuraxial Anesthesia: was administered and sensory block is resolving Anesthetic Complications: no major complications apparent and Pt Satisfied with anesthetic care
[2019-08-22] MEDS ORDERED: OXYCODONE HCL IR 5 MG TAB (IMMEDIATE RELEASE) PO PRN (16:12)
[2019-08-22] MEDS ORDERED: METOCLOPRAMIDE HCL INJ 5 MG/ML 2 ML VIAL IV PRN (16:12)
[2019-08-22] MEDS ORDERED: MAGNESIUM HYDROXIDE SUSP 30 ML UDC PO PRN (16:12)
[2019-08-22] MEDS ORDERED: bisacodyL 10 MG SUPP PR PRN (16:12)
[2019-08-22] MEDS ORDERED: NALOXONE HCL 0.4 MG/1 ML VIAL/CARP IV PRN (16:12)
[2019-08-22] MEDS ORDERED: HYDROmorphone INJ 0.5 MG/0.5 ML SYR IV PRN (16:12)
[2019-08-22] MEDS: SODIUM CHLORIDE 0.9% 1000ML 1,000 ML IV SCH (18:22)
[2019-08-22] MEDS: KETOROLAC 30 MG/ML VIAL IV SCH (18:23)
[2019-08-22] MEDS ORDERED: SENNA 8.6 MG TAB PO SCH (21:00)
[2019-08-22] MEDS ORDERED: SERTRALINE HCL 50 MG TABLET PO SCH (21:00)
[2019-08-22] MEDS: DOCUSATE SODIUM 100 MG CAP PO SCH (21:24)
[2019-08-22] MEDS: ASPIRIN 81 MG ECTAB PO SCH (21:24)
[2019-08-22] MEDS: CEFAZOLIN 2000MG 2,000 MG/15 ML SYR IV SCH (21:25)
[2019-08-22] MEDS: ACETAMINOPHEN 500 MG TAB PO SCH (21:25)
[2019-08-23] MEDS: KETOROLAC 30 MG/ML VIAL IV SCH ×3 (00:12→11:27)
[2019-08-23] MEDS: SODIUM CHLORIDE 0.9% 1000ML 1,000 ML IV SCH (04:52)
[2019-08-23] MEDS: CEFAZOLIN 2000MG 2,000 MG/15 ML SYR IV SCH (05:55)
[2019-08-23] MEDS: ACETAMINOPHEN 500 MG TAB PO SCH (05:55)
[2019-08-23] MEDS ORDERED: LEVOTHYROXINE SODIUM 137 MCG TABLET PO SCH (06:30)
--- NOTE | 2019-08-23 06:39 | Orthopedic Progress Note ---
Date of Service August 23, 2019 Assessment & Plan (1) History of right hip replacement: Overall she is doing very well. She is not in too much pain in the right hip. She will be seen by physical therapy this morning for ambulation and range of motion exercises. She can be discharged home later today. She will follow- up with orthopedics in 2 weeks. She is on aspirin for DVT prophylaxis. Present on Admission?: Yes Subjective Savanna was seen and examined at bedside this morning. Overall she is doing very well. She is not having too much pain in the right hip. She has been up and ambulating around her room. She has no complaints. Physical Exam Musculoskeletal: On physical examination of the right hip, the Pamela VAC d ressing is to suction. Her leg lengths are equal. She has active dorsiflexion and plantarflexion of her right ankle. Sensation is intact throughout. Results & Data ([facility]) Vital Signs (Past 12 Hours) Vital Signs Temp Pulse Resp BP Pulse Ox 08/23/19 02:43 36.6 C 68 16 119/81 96 08/22/19 23:02 36.9 C 66 16 119/81 95 Diagnostic Findings Postoperative x-rays of the right hip show the prosthesis to be in anatomic alignment without any evidence of fracture, dislocation, or loosening. PG Care Time/CCT Total # of Minutes Spent Total Time Spent with Patient: Total time spent is greater than 50% in coordination of care (as documented) at patient's floor/unit and/or counseling patient: Coding Level of Care Code None Diagnoses History of right hip replacement Z96.641
--- NOTE | 2019-08-23 06:40 | Discharge Summary ---
Date of Service August 23, 2019 Admission HPI Per Admitting Provider Shara is a pleasant 59-year-old female who has been dealing with chronic bilateral hip pain. I did a left total hip arthroplasty on her in November 2018 and she did very well with that. Unfortunately she is still having a lot of right hip pain. X-rays and clinical examination have been diagnostic for primary osteoarthritis of the right hip. After failing conservative treatment, she has elected to proceed with a right anterior total hip arthroplasty. Principal Diagnosis Right total hip arthroplasty Discharge Data Allergies Allergy/AdvReac Type Severity Reaction Status Date / Time meloxicam Allergy Mild Rash Verified 08/22/19 10:48 Sulfa (Sulfonamide Allergy Mild Rash Verified 08/22/19 10:48 Antibiotics) Consultations 08/23/19 08:00 Consult Case Management - Discharge Planning Routine Procedures Performed Operation Date: 07/18/19 08:30 <No data on this case meets the specified criteria> Operation Date: 08/22/19 12:00 Actual Procedures p Right Anterior Total Hip Arthroplasty(Right) - Frankie Kline DO Ordered Studies 08/22/19 07:00 FL fluoroscopy <1hr Routine FL hip RT 1V Routine Hospital Course (1) History of right hip replacement: On August 22, 2019 she arrived at [facility] and underwent a right anterior total hip arthroplasty without complication. She had a spinal anesthetic. Postoperatively she was started on aspirin for DVT prophylaxis and transferred to the general orthopedic floors. Her hospital course was uneventful. On postop day #1 her H&H was stable and her pain was well controlled. She was able to participate well with physical therapy doing ambulation and range of motion exercises. She was then discharged home. She will follow-up with orthopedics in 2 weeks. Total Time Total Time Spent Total Time Spent (In Minutes): 20 Discharge Plan Discharge Items Patient Disposition: Home - Home Health Services Reason For Visit: RIGHT HIP DEGENERATIVE JOINT DISEASE Discharge Diagnosis: Right total hip arthroplasty Activity: As commented below Non-emergency contact: Surgeon Call non-emergency contact if: your wound has increased redness and your wound has increased drainage Follow-up/Referrals: Sohan Downey MD [Primary Care Provider] - Diet: Regular Addtl Attending Provider Instructions: Activity and Therapy Recommendations: * If you are using [facility] then therapy will be provided at your home until they feel you have accomplished all of your goals. * If you are using [facility] then Physical Therapy will be provided until they feel you are ready to start Outpatient Physical Therapy. * If you are not using home therapy then Outpatient Physical Therapy should start about 3-5 days from your day of surgery. Therapy will last about 6-10 weeks * You were shown a series of exercises in the hospital. Do these exercises three times each day including the exercises you were shown in physical therapy. * Get up and walk several times each day.~ For the first four weeks, try not to stand or walk for more than one hour at a time. If you do stand or walk for more than one hour, you will not hurt anything, but your leg will likely swell.~~ * As you feel comfortable, you may change from the walker or crutches to a cane and~then to independent walking. Medications: * Narcotic You will likely be sent home from the hospital with a prescription for the narcotic pain medication that worked best throughout your stay. * Aspirin Most patients will be required to take Aspirin 81mg twice a day for 6 weeks after surgery. This is obtained [id number] and a prescription is not necessary. * Other medications may be prescribed for specific circumstances. If you have any questions, please call the office at . * Resume previous home medications unless otherwise instructed TEDs/Elastic Stockings: The white elastic stockings help limit swelling and prevent blood clots from forming in your legs. The more you wear them, the more they work. Wear them for six weeks. Dressing Care: You will likely have a purple VAC dressing after surgery. This dressing will keep the incision dry and promote early healing. After about 7 days the batteries will wear out and the VAC will lose suction. Simply remove the dressing at that time and throw everything away, including the small suction machine. Then, you may leave the kanu open to air or cover them with a dry dressing so they do not rub on your pants. The kanu will be removed at your 2 week follow-up appointment. Showering: You may shower immediately with the purple VAC dressing. Let the shower spray hit your opposite side and slowly pat the plastic dry. Do not soak the dressing. After the dressing is removed you may shower normally with the kanu exposed. Let soapy water run over the kanu and pat them dry. Things To Watch For: * Drainage from the incision site that occurs more than one week after your surgery. * Increased redness at the incision site. * Fever above 102 degrees Fahrenheit. * Unusual chest pain or shortness of breath. * Call [facility] at with any of the above problems Follow-Up Visit: Follow-up with Dr. Kline's PA (Frankie Ward) 2-3 weeks after your day of surgery. He will remove your kanu and answer any questions. If you have any additional questions or concerns, Dr Kline is usually in the office at the same time and will be available An appointment was probably scheduled when you signed-up for surgery in the office. If you have any questions call Office Instructions: More detailed instructions as well as Frequently Asked Questions were provided in a folder by our office when you signed-up for surgery. Please review these instructions when you get home. If you have any further questions or concerns, please feel free to call the office at [phone] Pending Studies at Discharge: No Stand-Alone Forms: My [facility], Smoking Cessation Medications and DC Order Prescriptions: New oxycodone 5 mg Tablet 5 mg PO Q4H PRN (Reason: pain) Qty: 30 RF: 0 aspirin 81 mg Tablet,Delayed Release (Dr/Ec) 81 mg PO BID 42 Days Qty: 0 RF: 0 Continued amoxicillin 500 mg tablet 2,000 mg PO ONCE Qty: 4 RF: 2 multivitamin Tablet 1 tab PO DAILY RF: 0 levothyroxine 137 mcg Tablet 137 mcg PO QAM RF: 0 sertraline [Zoloft] 100 mg Tablet 150 mg PO HS RF: 0 Calcium 600 + D(3) 600 mg calcium- 200 unit Capsule 1 cap PO DAILY RF: 0 omeprazole 20 mg Tablet,Delayed Release (Dr/Ec) 20 mg PO QAM RF: 0 cholecalciferol (vitamin D3) [Vitamin D3] 2,000 unit Capsule 2,000 unit PO DAILY RF: 0 melatonin 3 mg Capsule 3 mg PO HS PRN (Reason: Sleep) RF: 0 fish,bora,flax oils-om3,6,9no1 [Triple [place] 3-6-9] 400-400-400 mg Capsule 1 cap PO DAILY RF: 0 Discharge Orders: Discharge Order (Routine); Ordered 08/23/19 Ordered By: Frankie Kline Admission Data Admit Date/Time: 08/22/19 14:21 Attending Provider: Frankie Kline Admit Provider: Frankie Kline Primary Care Provider: Sohan Downey Coding Level of Care Code D/C Day Management <30 mins Diagnoses History of right hip replacement Z96.641
[2019-08-23 07:22] LABS: Red Blood Count 4.31 M/uL (4.2-5.4); White Blood Count 8.24 K/uL (4.8-10.8)
[2019-08-23 07:23] LABS: Hematocrit (blood only) 35.8 % (37-47); Hemoglobin 11.7 g/dL (12.0-16.0); Immature Granulocytes # (auto) 0.02 K/uL (0.00-0.02); Immature Granulocytes % (auto) 0.2 %; Lymphocytes # (auto) 0.59 K/uL (1.2-3.4); Lymphocytes % (auto) 7.2 %; Mean Corpuscular Hemoglobin 27.1 pg (25-34); Mean Corpuscular Hgb Conc 32.7 g/dL (32-36); Mean Corpuscular Volume 83.1 fL (80-100); Mean Platelet Volume 9.9 fL (7.4-10.4); Monocytes # (auto) 0.77 K/uL (0.11-0.59); Monocytes % (auto) 9.3 %; Neutrophils # (auto) 6.86 K/uL (1.4-6.5); Neutrophils % (auto) 83.3 %; Platelet Count 210 K/uL (130-400); RDW Coefficient of Variation 13.5 % (11.5-14.5); RDW Standard Deviation 41.1 fL (36.4-46.3)
[2019-08-23 07:47] LABS: Calcium 8.5 mg/dl (8.5-10.1); Creatinine Clr Calc Pharmacy 68.1 ml/min; Est GFR (African American) 69.1; Est GFR (Non-African American) 59.6; Potassium 4.2 mmol/L (3.5-5.1)
[2019-08-23] MEDS ORDERED: dexAMETHasone 4 MG TAB PO SCH (08:00)
[2019-08-23] MEDS: DOCUSATE SODIUM 100 MG CAP PO SCH (08:07)
[2019-08-23] MEDS: ASPIRIN 81 MG ECTAB PO SCH (08:07)
[2019-08-23] MEDS ORDERED: MULTIVITAMIN TAB PO SCH (09:00)
[2019-08-23] MEDS ORDERED: PANTOprazole 40 MG TAB PO SCH (09:00)
== END 2019-08-23 13:33 | disposition home or self-care (01) | DRG 470 ==
LOC: ASU 09:52 → 3E 14:21 → INTOOBSV 14:21

== ENCOUNTER 2020-01-04 21:09 | Inpatient (IN) ==
[2020-01-04] MEDS ORDERED: FAMOTIDINE 20MG IV PUSH 20 MG/5 ML SYR IV STA (21:34)
[2020-01-04] MEDS ORDERED: METOCLOPRAMIDE HCL INJ 5 MG/ML 2 ML VIAL IV STA (21:34)
[2020-01-04] MEDS ORDERED: SODIUM CHLORIDE 0.9% 1000ML 1,000 ML IV ONE (21:36)
--- NOTE | 2020-01-04 21:39 | Emergency Department Note ---
Impression & Plan Non-ST elevation IN (NSTEMI), Elevated troponin, Elevated blood-pressure reading without diagnosis of hypertension, GERD (gastroesophageal reflux disease) ED Provider Note NAME: ALF PATHAK AGE: 59 SEX: F ARRIVES VIA: Walk-In INFORMANT: Patient ED PROVIDER(S): Rashawn Glover MD CHIEF COMPLAINT: Chest pain PLAN: Disposition: Admit MEDICAL DECISION MAKING: The patient is a pleasant 59-year-old woman with a past medical history of acid reflux, GERD, anxiety who presents emerged department for evaluation of chest pain which she initially thought was her reflux but felt it was a bit more severe than usual and extended into her neck which she relates is not typical for her reflux. She does admit that she did have oral intake this evening that likely provoked her acid reflux including a chicken sandwich from [employer], 2 wardrobe coordinator kies with chocolate and wine. She also reports belching. She denies any significant shortness of breath, nausea or vomiting, fevers, chills, cough, congestion, diarrhea, urinary symptoms. She denies any known contacts with individuals diagnosed with COVID-19. She did take an 81mg aspirin but denied any significant change. On arrival patient is no acute distress, afebrile, hypertensive but otherwise stable vital signs. EKG is unremarkable without overt acute ischemia. On exam the patient appears clinically dry. She has mild epigastric discomfort without discrete tenderness. EKG without evidence of acute ischemia. CXR negative. WBC and platelets wnl. H/H 11.6/36 similar to prior. Chemistry without acidosis. LFTs and electrolytes unremarkable. Initial troponin negative/undetectable. Patient reported feeling improved with resolution of sx following Pepcid and GI cocktail. However, Delta 90 minute troponin was elevated at 0.13. Thus, symptoms concerning for cardiac component. Heart score 5, moderate risk. Findings reviewed with patient and . They are agreeable with admission. Patient is now symptom free. Given additional Aspirin to complete full dose. Will defer decision for heparin to admitting team. Case was discussed with Dr. Harris, [facility] hospitalist, who will evaluate the patient for admission. Triage Nursing notes reviewed and agree them. [Prior medical records reviewed] [] Vital Signs: reviewed and remarkable for HTN. Differential diagnosis: Cardiac ischemia, aortic dissection, pulmonary embolism, pneumothorax, pneumonia, pericarditis, myocarditis, esophageal rupture, GERD, cholecystitis, pancreatitis, musculoskeletal, as well as other pathologies. ER treatment provided: See below. Diagnostics interpreted by me: ECG: NSR, 69 bpm, no ectopy, nonspecific ST abnormality, otherwise no overt ST elevation or depression. Cardiac Monitoring: An order for continuous cardiac monitoring was placed and demonstrated NSR, 69 bpm, no ectopy. Laboratory studies: [See below] [] Imaging studies: CXR: No acute cardiopulmonary process per my review. Consultation(s): Case was discussed with Dr. Harris, [facility] hospitalist, who will evaluate the patient for admission. HPI: The patient is a pleasant 59-year-old woman with a past medical history of acid reflux, GERD, anxiety who presents emerged department for evaluation of chest pain which she initially thought was her reflux but felt it was a bit more severe than usual and extended into her neck which she relates is not typical for her reflux. She does admit that she did have oral intake this evening that likely provoked her acid reflux including a chicken sandwich from [employer], 2 cookies with chocolate and wine. She also reports belching. She denies any significant shortness of breath, nausea or vomiting, fevers, chills, cough, congestion, diarrhea, urinary symptoms. She denies any known contacts with judy viduals diagnosed with COVID-19. She did take an 81mg aspirin but denied any significant change. ROS: See above HPI for pertinent positives & negatives. A total of [10] systems reviewed and were otherwise negative. PAST MEDICAL HISTORY:[See Below] PAST SURGICAL HISTORY:[See Below] FAMILY HISTORY:[See Below] SOCIAL HISTORY:[See Below] HOME MEDICATIONS:[See Below] ALLERGIES:[See Below] VITALS:[See Below] PHYSICAL EXAMINATION: GENERAL: Awake, alert, fatigued-appearing, in no distress HENT: Normocephalic, atraumatic. Oropharynx with dry mucous membranes and otherwise unremarkable. EYES: Normal conjunctiva. Sclera non-icteric. NECK: Supple. No nuchal rigidity. FROM. No JVD. RESPIRATORY: Clear to auscultation. CARDIAC: Regular rate, normal rhythm. Extremities warm and well perfused. Pulses equal. ABDOMEN: Soft, non-distended. Mild epigastric discomfort without discrete tenderness to palpation. No rebound or guarding. No masses. RECTAL: Deferred. MUSCULOSKELETAL: Chest examination reveals no tenderness. The back is symmetrical on inspection without obvious abnormality. There is no CVA tenderness to palpation. No joint edema. LOWER EXTREMITIES: Calves are equal size bilaterally and non-tender. No edema. No discoloration. NEURO: Normal sensorium. No sensory or motor deficits noted. SKIN: No rash or jaundice noted. ED COURSE: [Critical Care:] I have personally spent greater than 35 minutes of critical care time in the direct management of this patient. This includes bedside care, interpretation of diagnostic studies, and testing, discussion with consultants, patient, and family members, and other required patient management activities. This 35 minutes is in excess of all separately billable procedures. Rashawn Glover MD Past Med/Surg History Medical History Anemia Anxiety Chronic back pain Environmental allergies GERD (gastroesophageal reflux disease) Hypothyroidism Obesity Osteoarthritis Surgical History History of bilateral tubal ligation History of breast biopsy (-) History of section History of colonoscopy History of esophagogastroduodenoscopy (EGD) History of right hip replacement (~08/2019) History of tooth extraction History of total hip arthroplasty LEFT Family History Uncle Family history of diabetes mellitus Grandfather (Paternal) FHx: prostate cancer Social History Smoking Status: Unknown if ever smoked Second Hand Exposure: Yes ( A CHILD); Hx Alcohol Use: No Hx Substance Use: No Preferred Language: Greek Communication Ability: Effective 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 Required: No Beliefs That Will Affect Care: None marital status: Current Living Situation: Family Other Information That Helps Us Care for You: No Feels Safe at Home: Yes Safety Concerns: Feels Safe At This Time Assistive Devices: None Allergies Allergies Allergy/AdvReac Type Severity Reaction Status Date / Time meloxicam Allergy Mild Rash Verified 01/04/20 22:16 Sulfa (Sulfonamide Allergy Mild Rash Verified 01/04/20 22:16 Antibiotics) Home Meds Home Medications Medication Instructions Recorded Confirmed Calcium 600 + D(3) 1 cap PO DAILY 10/14/18 01/04/20 cholecalciferol (vitamin D3) 2,000 unit PO DAILY 10/14/18 01/04/20 [Vitamin D3] fish,bora,flax oils-om3,6,9no1 1 cap PO DAILY 10/14/18 01/04/20 [Triple [place] 3-6-9] levothyroxine 137 mcg PO QAM 10/14/18 01/04/20 melatonin 3 mg PO HS PRN 10/14/18 01/04/20 multivitamin 1 tab PO DAILY 10/14/18 01/04/20 omeprazole 20 mg PO QAM 10/14/18 01/04/20 sertraline [Zoloft] 150 mg PO HS 10/14/18 01/04/20 amoxicillin 2,000 mg PO .PRN/UD 01/04/20 01/04/20 Results & Data (ED) Vital Signs Vital Signs - 24 hr 01/04/20 21:11 01/04/20 21:50 01/04/20 22:37 Temperature 36.7 C Temperature Source Oral Pulse Rate 78 Pulse Rate [Apical] 78 Respiratory Rate 18 22 Respiratory Effort / Characteristics Non-Labored Respiratory Depth Normal Normal Blood Pressure 176/107 H Blood Pressure [Right Arm] 156/98 H Blood Pressure Mean 130 Blood Pressure Mean [Right Arm] 117 Pulse Oximetry 96 98 Oxygen Delivery Method Room Air Room Air Room Air Sepsis Recent Fever Within 48 Hours No Sepsis New/Unexplained Change in Mental Status No Sepsis Action Taken by Nursing No Action Required 01/05/20 00:17 Temperature Temperature Source Pulse Rate Pulse Rate [Apical] 66 Respiratory Rate 22 Respiratory Effort / Characteristics Respiratory Depth Normal Blood Pressure Blood Pressure [Right Arm] 150/91 H Blood Pressure Mean Blood Pressure Mean [Right Arm] 110 Pulse Oximetry 97 Oxygen Delivery Method Room Air Sepsis Recent Fever Within 48 Hours Sepsis New/Unexplained Change in Mental Status Sepsis Action Taken by Nursing Laboratory Data Attestation: I reviewed the patient's lab results. Result diagrams: 01/04/20 21:47 01/04/20 21:47 Lab Results 01/04/20 01/04/20 01/04/20 Range/Units 21:47 21:47 21:47 WBC 5.33 (4.8-10.8) K/uL RBC 4.98 (4.2-5.4) M/uL Hgb 11.6 L (12.0-16.0) g/dL Hct 36.0 L (37-47) % MCV 72.3 L (80-100) fL MCH 23.3 L (25-34) pg MCHC 32.2 (32-36) g/dL RDW Std Deviation 45.0 (36.4-46.3) fL RDW Coeff of Dayday 17.1 H (11.5-14.5) % Plt Count 257 (130-400) K/uL MPV 10.3 (7.4-10.4) fL Immature Gran % (Auto) 0.2 % Neut % (Auto) 47.7 % Lymph % (Auto) 40.2 % [place] % (Auto) 9.8 % Eos % (Auto) 1.9 % Baso % (Auto) 0.2 % Neut # (Auto) 2.55 (1.4-6.5) K/uL Lymph # (Auto) 2.14 (1.2-3.4) K/uL [place] # (Auto) 0.52 (0.11-0.59) K/uL Eos # (Auto) 0.10 (0-0.5) K/uL Baso # (Auto) 0.01 (0-0.2) K/uL Immature Gran # (Auto) 0.01 (0.00-0.02) K/uL PT 10.9 (9.0-12.0) Seconds INR 1.0 (0.9-1.1) APTT 26.2 (21.0-31.0) Seconds PTT Ratio 0.9 Sodium 141 (136-145) mmol/L Potassium 3.7 (3.5-5.1) mmol/L Chloride 110 H (98-107) mmol/L Carbon Dioxide 23 (21-32) mmol/L Anion Gap 8.0 (3-11) BUN 23 H (7-18) mg/dl Creatinine 0.97 (0.6-1.2) mg/dl Est Cr Clr Drug Dosing 73.5 ml/min Est GFR ( Amer) 75.1 Est GFR (Non-Af Amer) 64.8 BUN/Creatinine Ratio 23.3 H (10-20) Glucose 108 H (70-99) mg/dl Calcium 8.6 (8.5-10.1) mg/dl Phosphorus 3.2 (2.5-4.9) mg/dl Magnesium 2.0 (1.8-2.4) mg/dl Total Bilirubin 0.1 L (0.2-1) mg/dl Direct Bilirubin < 0.1 (0-0.2) mg/dl AST 19 (15-37) U/L ALT 29 (12-78) U/L Alkaline Phosphatase 82 (45-117) U/L Troponin I < 0.015 (0-0.045) ng/ml Total Protein 7.1 (6.4-8.2) gm/dl Albumin 3.3 L (3.4-5.0) gm/dl Globulin 3.8 (2.5-4.0) gm/dl Albumin/Globulin Ratio 0.9 (0.9-2) Lipase 154 (73-393) U/L TSH 0.983 (0.300-4.500) uIu/ml 01/04/20 Range/Units 23:25 WBC (4.8-10.8) K/uL RBC (4.2-5.4) M/uL Hgb (12.0-16.0) g/dL Hct (37-47) % MCV (80-100) fL MCH (25-34) pg MCHC (32-36) g/dL RDW Std Deviation (36.4-46.3) fL RDW Coeff of Dayday (11.5-14.5) % Plt Count (130-400) K/uL MPV (7.4-10.4) fL Immature Gran % (Auto) % Neut % (Auto) % Lymph % (Auto) % [place] % (Auto) % Eos % (Auto) % Baso % (Auto) % Neut # (Auto) (1.4-6.5) K/uL Lymph # (Auto) (1.2-3.4) K/uL [place] # (Auto) (0.11-0.59) K/uL Eos # (Auto) (0-0.5) K/uL Baso # (Auto) (0-0.2) K/uL Immature Gran # (Auto) (0.00-0.02) K/uL PT (9.0-12.0) Seconds INR (0.9-1.1) APTT (21.0-31.0) Seconds PTT Ratio Sodium (136-145) mmol/L Potassium (3.5-5.1) mmol/L Chloride (98-107) mmol/L Carbon Dioxide (21-32) mmol/L Anion Gap (3-11) BUN (7-18) mg/dl Creatinine (0.6-1.2) mg/dl Est Cr Clr Drug Dosing ml/min Est GFR ( Amer) Est GFR (Non-Af Amer) BUN/Creatinine Ratio (10-20) Glucose (70-99) mg/dl Calcium (8.5-10.1) mg/dl Phosphorus (2.5-4.9) mg/dl Magnesium (1.8-2.4) mg/dl Total Bilirubin (0.2-1) mg/dl Direct Bilirubin (0-0.2) mg/dl AST (15-37) U/L ALT (12-78) U/L Alkaline Phosphatase (45-117) U/L Troponin I 0.131 H* (0-0.045) ng/ml Total Protein (6.4-8.2) gm/dl Albumin (3.4-5.0) gm/dl Globulin (2.5-4.0) gm/dl Albumin/Globulin Ratio (0.9-2) Lipase (73-393) U/L TSH (0.300-4.500) uIu/ml Administered Medications Heparin Sodium/Dextrose (Heparin Sodium/Dextrose) 25,000 units in 500 mls @ 26 mls/hr IV .[id number] [facility]; Protocol Stop: 02/04/20 01:35 Last Admin: 01/05/20 02:17 Dose: 1,300 units/hr, 26 mls/hr Documented by: [id number] Cosigned by: [id number] Sodium Chloride (Nss 1000ml) 1,000 mls @ 80 mls/hr IV .[id number] [facility] Stop: 02/04/20 01:35 Last Admin: 01/05/20 02:17 Dose: 80 mls/hr Documented by: [id number] Levothyroxine Sodium (Levothyroxine Sodium 137 Mcg Tablet) 137 mcg PO DAILYBB [facility] Stop: 02/04/20 06:29 Last Admin: 01/05/20 05:28 Dose: 137 mcg Documented by: [id number] Discontinued Medications Al Hydrox/Mg Hydrox/Simethicone (Gi Cocktail Ed Use) 1 dose PO ONE ONE Stop: 01/04/20 22:27 Last Admin: 01/04/20 22:37 Dose: 1 dose Documented by: [id number] Aspirin (Aspirin Chew 324 Mg) 243 mg PO NOW STA Stop: 01/05/20 00:41 Last Admin: 01/05/20 00:51 Dose: 243 mg Documented by: [id number] Heparin Sodium/Dextrose (Heparin 42637 Unit/500 Ml D5w) Confirm Administered Dose 25,000 units IV .STK-MED ONE Stop: 01/05/20 01:50 Last Admin: 01/05/20 02:19 Dose: Not Given Documented by: [id number] Famotidine (Pepcid 20mg Iv Push) 20 mg in 5 mls @ 2.5 mls/min IV NOW STA Stop: 01/04/20 21:35 Last Admin: 01/04/20 21:54 Dose: 2.5 mls/min Documented by: [id number] Sodium Chloride (Nss 1000ml) 1,000 mls @ 999 mls/hr IV .[id number] ONE Stop: 01/04/20 22:36 Last Infusion: 01/04/20 22:55 Dose: 0 mls/hr Documented by: [id number] Admin: 01/04/20 21:54 Dose: 999 mls/hr Documented by: [id number] Metoclopramide HCl (Metoclopramide Hcl Inj 5 Mg/Ml 2 Ml Vial) 10 mg IV NOW STA Stop: 01/04/20 21:35 Last Admin: 01/04/20 21:54 Dose: 10 mg Documented by: [id number] Discharge Plan Visit Data Chief Complaint: Chest Pain Stated Complaint: CHEST TIGHTNESS, SOB ED Provider: Rashawn Glover Discharge Problem: Non-ST elevation IN (NSTEMI), Elevated troponin, Elevated blood-pressure reading without diagnosis of hypertension, GERD (gastroesophageal reflux disease) Patient Disposition: Admitted As Inpatient Discharge Instructions Interventions: ED Discharge Assessment Last Done: 01/05/20 01:34
[2020-01-04 21:57] LABS: Basophils # (auto) 0.01 K/uL (0-0.2); Basophils % (auto) 0.2 %; Eosinophils % (auto) 1.9 %; Hemoglobin 11.6 g/dL (12.0-16.0); Immature Granulocytes # (auto) 0.01 K/uL (0.00-0.02); Immature Granulocytes % (auto) 0.2 %; Lymphocytes # (auto) 2.14 K/uL (1.2-3.4); Lymphocytes % (auto) 40.2 %; Mean Corpuscular Hemoglobin 23.3 pg (25-34); Mean Corpuscular Hgb Conc 32.2 g/dL (32-36); Mean Corpuscular Volume 72.3 fL (80-100); Mean Platelet Volume 10.3 fL (7.4-10.4); Monocytes # (auto) 0.52 K/uL (0.11-0.59); Monocytes % (auto) 9.8 %; Neutrophils # (auto) 2.55 K/uL (1.4-6.5); Neutrophils % (auto) 47.7 %; Platelet Count 257 K/uL (130-400); RDW Coefficient of Variation 17.1 % (11.5-14.5); Red Blood Count 4.98 M/uL (4.2-5.4); White Blood Count 5.33 K/uL (4.8-10.8)
[2020-01-04 22:07] LABS: Partial Thromboplastin Ratio 0.9; Partial Thromboplastin Time 26.2 Seconds (21.0-31.0); Prothrombin Time 10.9 Seconds (9.0-12.0)
[2020-01-04 22:13] LABS: Alanine Aminotransferase 29 U/L (12-78); Albumin Level 3.3 gm/dl (3.4-5.0); Aspartate Aminotransferase 19 U/L (15-37); BUN Creatinine Ratio 23.3 (10-20); Bilirubin Direct < 0.1 mg/dl (0-0.2); Blood Urea Nitrogen 23 mg/dl (7-18); Calcium 8.6 mg/dl (8.5-10.1); Carbon Dioxide 23 mmol/L (21-32); Chloride 110 mmol/L (98-107); Creatinine Clr Calc Pharmacy 73.5 ml/min; Est GFR (African American) 75.1; Est GFR (Non-African American) 64.8; Glucose 108 mg/dl (70-99); Lipase 154 U/L (73-393); Potassium 3.7 mmol/L (3.5-5.1); Sodium 141 mmol/L (136-145)
[2020-01-04 22:22] LABS: Albumin Globulin Ratio 0.9 (0.9-2); Alkaline Phosphatase 82 U/L (45-117); Bilirubin,Total 0.1 mg/dl (0.2-1); Globulin 3.8 gm/dl (2.5-4.0); Phosphorus 3.2 mg/dl (2.5-4.9); Thyroid Stimulating Hormone 0.983 uIu/ml (0.300-4.500); Total Protein 7.1 gm/dl (6.4-8.2); Troponin I < 0.015 ng/ml (0-0.045)
[2020-01-04] MEDS ORDERED: GI COCKTAIL ED USE PO ONE (22:26)
[2020-01-05] MEDS ORDERED: ASPIRIN CHEW 324 MG PO STA (00:40)
[2020-01-05] MEDS ORDERED: ASPIRIN 81 MG CHEW PO STA (00:59)
[2020-01-05] MEDS ORDERED: NITROGLYCERIN SL 0.4 MG/TAB TAB SL PRN (01:36)
[2020-01-05] MEDS ORDERED: HEPARIN SODIUM/DEXTROSE 25,000 UNITS/500 ML BAG IV SCH (01:36)
[2020-01-05] MEDS ORDERED: ONDANSETRON INJ 2 MG/ML 2 ML VIAL IV PRN (01:36)
[2020-01-05] MEDS ORDERED: SODIUM CHLORIDE 0.9% 1000ML 1,000 ML IV SCH (01:36)
[2020-01-05] MEDS ORDERED: ACETAMINOPHEN 325 MG TAB PO PRN (01:36)
[2020-01-05] MEDS ORDERED: MELATONIN 3 MG TAB PO PRN (01:45)
[2020-01-05] MEDS ORDERED: HEPARIN 25000 UNIT/500 ML D5W IV ONE (01:49)
[2020-01-05] MEDS ORDERED: INFLUENZA VIRUS QUAD VACCINE 0.5 ML SYR IM ONE (02:13)
[2020-01-05] MEDS ORDERED: INFLUENZA ADMINISTRATION CHARGE ONE (02:13)
--- NOTE | 2020-01-05 05:04 | History and Physical Report ---
DATE OF ADMISSION: 01/05/2020 CHIEF COMPLAINT: Chest pain. HISTORY OF PRESENT ILLNESS: This is a 59-year-old female with past medical history significant for hypothyroidism, depression, who comes with chest discomfort. The patient says she was doing trick and treat for Halloween and she was sitting in a chair and having wine, she suddenly felt pain in her chest, tightness, radiating to the neck and jaw and pain in the teeth, moderate in severity. She has hx of heartburn, but it did felt different. She took aspirin at home, but did not subside, so she came to the ER. In the ER, she was given aspirin and also famotidine,Reglan and GI cocktail and currently pain is resolved, but her second troponin came back as mildly elevated. The patient currently feeling fine. Denies any headache, no dizziness, no blurred vision, no earache, no runny nose, no sore throat, no cough, no shortness of breath, no nausea, no abdominal pain currently, was nauseous when she came in, no diarrhea, no constipation. Normal bladder movements. No blood in the stools or black stools.Before this episode happened, she was fine and there was no chest pain with ambulating or exertion. ALLERGIES: MELOXICAM, SULFA ANTIBIOTICS. PAST MEDICAL HISTORY: As mentioned above. PAST SURGICAL HISTORY: Right breast lesion excision, , colonoscopy, dental surgery, EGDs, ligation of oviducts, bilateral hip replacements. MEDICATIONS: The patient is on levothyroxine 137 mcg p.o. daily, omeprazole 20 mg p.o. daily, sertraline 150 mg p.o. daily, omega-3 1 tablet daily, calcium plus vitamin D 1 tablet daily. FAMILY HISTORY: Significant for father had skin cancer, Schatzki ulcer, bypass surgery in the 80s, hypertension. Mother has macular degeneration, hysterectomy due to fibroids, Sarah's esophagitis, hypercholesterolemia. Sister has hypercholesterolemia. Uncle has heart disorder. Paternal grandfather had prostate cancer. Maternal grandmother had leukemia. Maternal grandfather had CHF. SOCIAL HISTORY: . No smoking, alcohol occasionally. No drug use. REVIEW OF SYMPTOMS: As per HPI. Rest of review of symptoms negative. PHYSICAL EXAMINATION: GENERAL: The patient is obese, not in acute distress. VITAL SIGNS: Temperature 36.9, pulse 56, respiratory rate 17, blood pressure 150/95 and oxygen 97% on room air. HEENT: Pupils equal, round, reactive to light. Oral mucosa moist. NECK: No JVD, no neck masses. CARDIOVASCULAR: S1, S2 heard, regular rate and rhythm, no murmur, no gallop. RESPIRATORY SYSTEM: Normal AP diameter. No accessory muscle use. No wheezing, no crackles. ABDOMEN: Soft, bowel sounds present, nontender. No distention. CENTRAL NERVOUS SYSTEM: Cranial nerves II-XII grossly intact, nonfocal. EXTREMITIES: No edema, no erythema. LABORATORY DATA: WBC 5.3, hemoglobin 11.6, hematocrit 36, MCV 72.3, platelets 257. PT 10.9, INR 1, APTT 26.2. Sodium 141, potassium 3.7, chloride 110, bicarbonate 23, BUN 23, creatinine 0.9, serum glucose 108, calcium 8.6, phosphorus 3.2, magnesium 2, total bilirubin 0.1, direct bilirubin less than 0.1, AST 19, ALT 29, alkaline phosphatase 82. Troponin I 0.13, lipase 154, TSH 0.9. IMAGING: Chest x-ray, no acute findings seen. EKG: Normal sinus rhythm, at rate of 69, no significant change was found. ASSESSMENT AND PLAN: This is a 59-year-old female who presents with chest pain and mild elevation of troponin. 1. Chest pain, mild elevation of troponin. EKG unremarkable, probably non-ST elevated myocardial infarction. Chest pain resolved with aspirin and also GI cocktail. She has history of heartburn, but risks factors of age and obesity with elevation of troponin. We will treat as non-ST elevated myocardial infarction and placed on IV heparin. Baby aspirin on a.m. and repeat EKG, currently asymptomatic. Closely monitor in tele floor. Keep n.p.o. and consult cardiology. Repeat troponin and echocardiogram. Further management as per cardiology. 2. Hypothyroidism: Continue Synthroid. 3. Gastroesophageal reflux disease: Continue omeprazole. 4. Depression. Continue Zoloft 5. Anemia: Hemoglobin 11.6, borderline low, but she haslow mcv. We will check stool for Hemoccult. 6. Deep venous thrombosis prophylaxis, on IV heparin. DISPOSITION: Closely monitor in tele floor. Level 1 full code. MTDD
[2020-01-05] MEDS: LEVOTHYROXINE SODIUM 137 MCG TABLET PO SCH (05:28)
[2020-01-05 06:16] LABS: Basophils # (auto) 0.01 K/uL (0-0.2); Basophils % (auto) 0.2 %; Eosinophils # (auto) 0.05 K/uL (0-0.5); Eosinophils % (auto) 0.9 %; Hematocrit (blood only) 37.6 % (37-47); Hemoglobin 12.1 g/dL (12.0-16.0); Lymphocytes # (auto) 2.03 K/uL (1.2-3.4); Lymphocytes % (auto) 35.6 %; Mean Corpuscular Hemoglobin 23.3 pg (25-34); Mean Corpuscular Hgb Conc 32.2 g/dL (32-36); Mean Corpuscular Volume 72.4 fL (80-100); Mean Platelet Volume 10.2 fL (7.4-10.4); Monocytes # (auto) 0.56 K/uL (0.11-0.59); Monocytes % (auto) 9.8 %; Neutrophils # (auto) 3.06 K/uL (1.4-6.5); Neutrophils % (auto) 53.5 %; Platelet Count 241 K/uL (130-400); RDW Standard Deviation 44.8 fL (36.4-46.3); Red Blood Count 5.19 M/uL (4.2-5.4); White Blood Count 5.71 K/uL (4.8-10.8)
[2020-01-05 06:38] LABS: Partial Thromboplastin Time 54.7 Seconds (21.0-31.0)
[2020-01-05 06:42] LABS: Calcium 8.5 mg/dl (8.5-10.1); Est GFR (African American) 79.1; Est GFR (Non-African American) 68.2; Magnesium 2.1 mg/dl (1.8-2.4)
[2020-01-05] MEDS ORDERED: METOPROLOL TARTRATE 25 MG TAB PO SCH (06:55)
[2020-01-05] MEDS ORDERED: ATORVASTATIN 40 MG TAB PO SCH (06:55)
[2020-01-05] MEDS: Heparin IV Standard *NO* Bolus IV SCH ×5 (06:56→11:20)
--- NOTE | 2020-01-05 07:34 | XRay Report ---
SINGLE VIEW CHEST CLINICAL HISTORY: Atypical chest pain. FINDINGS: An AP, portable, upright chest radiograph is compared to study dated 08/06/2019. The cardiome diastinal silhouette is unremarkable. A hiatal hernia is noted. The lungs and pleural spaces are shannon r. No pneumothorax is seen. The bony thorax is grossly intact. IMPRESSION: 1. No active disease in the chest. 2. Hiatal hernia. ACT 112: Negative or not required by law. Electronically signed by: Guillermo Faustin M.D. 01/05/2020 7:33 AM
--- NOTE | 2020-01-05 07:53 | Electrocardiogram Report ---
Test Reason : Blood Pressure : / mmHG Vent. Rate : 069 BPM Atrial Rate : 069 BPM P-R Int : 152 ms QRS Dur : 088 ms QT Int : 390 ms P-R-T Axes : 050 006 015 degrees QTc Int : 417 ms Normal sinus rhythm Normal ECG When compared with ECG of 06-AUG-2019 11:10, No significant change was found Confirmed by Macario Logan [id number]) on 01/05/2020 7:53:03 AM Referred By: REFERRED SELF Confirmed By:Macario Logan
[2020-01-05] MEDS: ATORVASTATIN 40 MG TAB PO SCH (08:08)
[2020-01-05] MEDS: METOPROLOL TARTRATE 25 MG TAB PO SCH ×2 (08:08→20:31)
[2020-01-05 08:28] LABS: Partial Thromboplastin Ratio 2.2
[2020-01-05 08:36] LABS: Partial Thromboplastin Time 61.5 Seconds (21.0-31.0)
--- NOTE | 2020-01-05 08:52 | Cardiology Consultation ---
Date of Consultation January 05, 2020 Assessment & Plan (1) Non-ST elevation [place] (NSTEMI): (2) GERD (gastroesophageal reflux disease): (3) History of right hip replacement: The patient has had a non-STEMI infarct without significant EKG changes. I believe a cardiac catheterization is warranted. I have explained the risk benefit and intent of the procedure to the patient and she is willing to proceed. She is currently n.p.o. and note will be completed later this morning. History of Present Illness Attending Physician: Lynne Durham MD History of Present Illness This is a 59-year-old female with no prior history of heart disease. She was sitting on her porch handing candy for Halloween and had the sudden onset of retrosternal chest discomfort radiating to her right arm neck and back. She does have a history of reflux however, she felt this discomfort was different. She was brought to the emergency department where she was given sublingual nitro glycerin as well as a GI cocktail that improved her symptoms. Her EKG showed no acute changes. Her second set of cardiac troponins have elevated to 9 indicating a possible non-STEMI infarct. She has no history of diabetes or kidney disease. She is a never smoker. She has a history of treated hypothyroidism and this past summer underwent right hip replacements, previously having the left done in November, from which she is still slowly recovering. She has had no activity related chest pain or unusual shortness of breath. She denies heart palpitations, dizziness or lightheadedness. She has had no melena or hematochezia. Allergies Allergy/AdvReac Type Severity Reaction Status Date / Time meloxicam Allergy Mild Rash Verified 01/04/20 22:16 Sulfa (Sulfonamide Allergy Mild Rash Verified 01/04/20 22:16 Antibiotics) Home Medications Home Medications Medication Instructions Recorded Confirmed Type Calcium 600 + D(3) 1 cap PO DAILY 10/14/18 01/04/20 History cholecalciferol (vitamin D3) 2,000 unit PO DAILY 10/14/18 01/04/20 History [Vitamin D3] fish,bora,flax oils-om3,6,9no1 1 cap PO DAILY 10/14/18 01/04/20 History [[place] 3-6-9] levothyroxine 137 mcg PO QAM 10/14/18 01/04/20 History melatonin 3 mg PO HS PRN 10/14/18 01/04/20 History multivitamin 1 tab PO DAILY 10/14/18 01/04/20 History omeprazole 20 mg PO QAM 10/14/18 01/04/20 History sertraline [Zoloft] 150 mg PO HS 10/14/18 01/04/20 History amoxicillin 2,000 mg PO .PRN/UD 01/04/20 01/04/20 History Patient History Medical History Anemia Anxiety Chronic back pain Environmental allergies GERD (gastroesophageal reflux disease) Hypothyroidism Obesity Osteoarthritis Surgical History History of bilateral tubal ligation History of breast biopsy (-) History of section History of colonoscopy History of esophagogastroduodenoscopy (EGD) History of right hip replacement (~08/2019) History of tooth extraction History of total hip arthroplasty LEFT Family History Uncle Family history of diabetes mellitus Grandfather (Paternal) FHx: prostate cancer Social History Smoking Status: Unknown if ever smoked Second Hand Exposure: Yes ( A CHILD); Hx Alcohol Use: No Hx Substance Use: No Preferred Language: Polish Communication Ability: Effective Utility Hand Required: No Beliefs That Will Affect Care: None marital status: Current Living Situation: Family Other Information That Helps Us Care for You: No Feels Safe at Home: Yes Safety Concerns: Feels Safe At This Time Assistive Devices: None Review of Systems Review of Systems: All systems reviewed & are unremarkable except as noted in HPI & below Nothing additional to add. Physical Exam Physical Exam: General: no acute distress and stated age Head: normocephalic, no masses, lesions, tenderness or abnormalities Eyes: conjunctiva are pink and non-injected, sclera clear Neck: supple, no adenopathy, no bruits, normal jugular venous pulse, no hepatojugular reflux Chest: normal shape and normal respiratory effort Lungs: clear to auscultation and percussion Cardiac Exam: - regular rate & rhythm, no murmurs gallops or rubs - normal S1, normal S2 Pulses: 2(+) throughout Abdomen: abdomen soft, non-tender, no abnormal masses and no hepatosplenomegaly Musculoskeletal: no gait disturbance, no joint inflammation, no deforming arthritis Extremities: no edema and no cyanosis Neuro: grossly normal exam Results & Data ([facility]) Vital Signs (Past 12 Hours) Vital Signs Temp Pulse Pulse Resp BP BP BP 01/05/20 07:48 36.9 C 71 18 148/87 H 01/05/20 07:00 67 01/05/20 03:57 36.6 C 69 16 121/76 01/05/20 02:51 56 L 01/05/20 01:45 36.9 C 56 L 17 150/95 H 01/05/20 01:34 64 18 141/91 H 01/05/20 00:17 66 22 150/91 H 01/04/20 22:37 78 22 156/98 H 01/04/20 21:11 36.7 C 78 18 176/107 H Pulse Ox 01/05/20 07:48 97 01/05/20 07:00 01/05/20 03:57 95 01/05/20 02:51 01/05/20 01:45 97 01/05/20 01:34 96 01/05/20 00:17 97 01/04/20 22:37 98 01/04/20 21:11 96 Laboratory Results Laboratory Results - last 24 hr 01/04/20 01/04/20 01/04/20 21:47 21:47 21:47 WBC 5.33 RBC 4.98 Hgb 11.6 L Hct 36.0 L MCV 72.3 L MCH 23.3 L MCHC 32.2 RDW Std Deviation 45.0 RDW Coeff of Dayday 17.1 H Plt Count 257 MPV 10.3 Immature Gran % (Auto) 0.2 Neut % (Auto) 47.7 Lymph % (Auto) 40.2 Lassen % (Auto) 9.8 Eos % (Auto) 1.9 Baso % (Auto) 0.2 Neut # (Auto) 2.55 Lymph # (Auto) 2.14 Lassen # (Auto) 0.52 Eos # (Auto) 0.10 Baso # (Auto) 0.01 Immature Gran # (Auto) 0.01 PT 10.9 INR 1.0 APTT 26.2 PTT Ratio 0.9 Sodium 141 Potassium 3.7 Chloride 110 H Carbon Dioxide 23 Anion Gap 8.0 BUN 23 H Creatinine 0.97 Est Cr Clr Drug Dosing 73.5 Est GFR ( Amer) 75.1 Est GFR (Non-Af Amer) 64.8 BUN/Creatinine Ratio 23.3 H Glucose 108 H Calcium 8.6 Phosphorus 3.2 Magnesium 2.0 Total Bilirubin 0.1 L Direct Bilirubin < 0.1 AST 19 ALT 29 Alkaline Phosphatase 82 Troponin I < 0.015 Total Protein 7.1 Albumin 3.3 L Globulin 3.8 Albumin/Globulin Ratio 0.9 Lipase 154 TSH 0.983 COVID-19 Eval Order SARS-CoV-2, RNA, NAAT 01/04/20 01/05/20 01/05/20 23:25 06:02 06:02 WBC 5.71 RBC 5.19 Hgb 12.1 Hct 37.6 MCV 72.4 L MCH 23.3 L MCHC 32.2 RDW Std Deviation 44.8 RDW Coeff of Dayday 17.0 H Plt Count 241 MPV 10.2 Immature Gran % (Auto) 0.0 Neut % (Auto) 53.5 Lymph % (Auto) 35.6 Lassen % (Auto) 9.8 Eos % (Auto) 0.9 Baso % (Auto) 0.2 Neut # (Auto) 3.06 Lymph # (Auto) 2.03 Lassen # (Auto) 0.56 Eos # (Auto) 0.05 Baso # (Auto) 0.01 Immature Gran # (Auto) 0.00 PT INR APTT PTT Ratio Sodium Potassium Chloride Carbon Dioxide Anion Gap BUN Creatinine Est Cr Clr Drug Dosing Est GFR ( Amer) Est GFR (Non-Af Amer) BUN/Creatinine Ratio Glucose Calcium Phosphorus Magnesium Total Bilirubin Direct Bilirubin AST ALT Alkaline Phosphatase Troponin I 0.131 H* 9.690 H* Total Protein Albumin Globulin Albumin/Globulin Ratio Lipase TSH COVID-19 Eval Order SARS-CoV-2, RNA, NAAT 01/05/20 01/05/20 01/05/20 06:02 06:02 07:56 WBC RBC Hgb Hct MCV MCH MCHC RDW Std Deviation RDW Coeff of Dayday Plt Count MPV Immature Gran % (Auto) Neut % (Auto) Lymph % (Auto) Lassen % (Auto) Eos % (Auto) Baso % (Auto) Neut # (Auto) Lymph # (Auto) Lassen # (Auto) Eos # (Auto) Baso # (Auto) Immature Gran # (Auto) PT INR APTT 54.7 H* 61.5 H* PTT Ratio 2.0 2.2 Sodium 140 Potassium 4.0 Chloride 110 H Carbon Dioxide 26 Anion Gap 4.0 BUN 17 Creatinine 0.93 Est Cr Clr Drug Dosing 77.0 Est GFR ( Amer) 79.1 Est GFR (Non-Af Amer) 68.2 BUN/Creatinine Ratio 18.0 Glucose 100 H Calcium 8.5 Phosphorus Magnesium 2.1 Total Bilirubin Direct Bilirubin AST ALT Alkaline Phosphatase Troponin I Total Protein Albumin Globulin Albumin/Globulin Ratio Lipase TSH COVID-19 Eval Order SARS-CoV-2, RNA, NAAT 01/05/20 01/05/20 Unknown Unknown WBC RBC Hgb Hct MCV MCH MCHC RDW Std Deviation RDW Coeff of Dayday Plt Count MPV Immature Gran % (Auto) Neut % (Auto) Lymph % (Auto) Lassen % (Auto) Eos % (Auto) Baso % (Auto) Neut # (Auto) Lymph # (Auto) Lassen # (Auto) Eos # (Auto) Baso # (Auto) Immature Gran # (Auto) PT INR APTT PTT Ratio Sodium Potassium Chloride Carbon Dioxide Anion Gap BUN Creatinine Est Cr Clr Drug Dosing Est GFR ( Amer) Est GFR (Non-Af Amer) BUN/Creatinine Ratio Glucose Calcium Phosphorus Magnesium Total Bilirubin Direct Bilirubin AST ALT Alkaline Phosphatase Troponin I Total Protein Albumin Globulin Albumin/Globulin Ratio Lipase TSH COVID-19 Eval Order Covid19 IDNow atMTXC SARS-CoV-2, RNA, NAAT NEGATIVE Medications Administered Current Inpatient Medications Acetaminophen (Acetaminophen 325 Mg Tab) 650 mg PO Q4H PRN PRN Reason: Pain or Fever Stop: 02/04/20 01:35 Aspirin (Aspirin 81 Mg Ectab) 81 mg PO DAILY [facility] Stop: 02/04/20 08:59 Atorvastatin Calcium (Atorvastatin 40 Mg Tab) 80 mg PO QAM DWAIN Stop: 02/04/20 06:59 Last Admin: 01/05/20 08:08 Dose: 80 mg Documented by: Heparin Sodium/Dextrose (Heparin Sodium/Dextrose) 25,000 units in 500 mls @ 26 mls/hr IV .[id number] DWAIN; Protocol Stop: 02/04/20 01:35 Last Titration: 01/05/20 06:56 Dose: 1,300 units/hr, 26 mls/hr Documented by: Sodium Chloride (Nss 1000ml) 1,000 mls @ 80 mls/hr IV .[id number] DWAIN Stop: 02/04/20 01:35 Last Admin: 01/05/20 02:17 Dose: 80 mls/hr Documented by: Levothyroxine Sodium (Levothyroxine Sodium 137 Mcg Tablet) 137 mcg PO DAILYBB DWAIN Stop: 02/04/20 06:29 Last Admin: 01/05/20 05:28 Dose: 137 mcg Documented by: Melatonin (Melatonin 3 Mg Tab) 3 mg PO HS PRN PRN Reason: Sleep Stop: 02/04/20 01:44 Metoprolol Tartrate (Metoprolol Tartrate 25 Mg Tab) 12.5 mg PO BID DWAIN Stop: 02/04/20 06:59 Last Admin: 01/05/20 08:08 Dose: 12.5 mg Documented by: Multivitamins (Multivitamin Tab) 1 tab PO DAILY DWAIN Stop: 02/04/20 08:59 Nitroglycerin (Nitroglycerin Sl 0.4 Mg/Tab Tab) 0.4 mg SL UD PRN PRN Reason: Chest Pain Stop: 02/04/20 01:35 Ondansetron HCl (Ondansetron Inj 2 Mg/Ml 2 Ml Vial) 4 mg IV Q6H PRN PRN Reason: Nausea Stop: 02/04/20 01:35 Pantoprazole Sodium (Pantoprazole 40 Mg Tab) 40 mg PO QAM DWAIN Stop: 02/04/20 08:59 Sertraline HCl (Sertraline Hcl 50 Mg Tablet) 150 mg PO HS DWAIN Stop: 02/04/20 20:59 Vitamin D (Cholecalciferol 1,000 Units 25 Mcg Tab) 2,000 units PO DAILY DWAIN Stop: 02/04/20 08:59
[2020-01-05] MEDS: MULTIVITAMIN TAB PO SCH (09:27)
[2020-01-05] MEDS: ASPIRIN 81 MG ECTAB PO SCH (09:27)
[2020-01-05] MEDS: CHOLECALCIFEROL 1,000 UNITS 25 MCG TAB PO SCH (09:27)
[2020-01-05] MEDS: PANTOprazole 40 MG TAB PO SCH (09:27)
--- NOTE | 2020-01-05 11:16 | Electrocardiogram Report ---
Test Reason : Blood Pressure : / mmHG Vent. Rate : 069 BPM Atrial Rate : 069 BPM P-R Int : 160 ms QRS Dur : 088 ms QT Int : 410 ms P-R-T Axes : 036 008 -02 degrees QTc Int : 439 ms Normal sinus rhythm Normal ECG When compared with ECG of 04-JAN-2020 21:17, (unconfirmed) No significant change was found Confirmed by Allan Hearn ([id number]) on 01/05/2020 11:16:10 AM Referred By: REFERRED SELF Confirmed By:Prasanna Hearn
--- NOTE | 2020-01-05 11:19 | Electrocardiogram Report ---
Test Reason : Blood Pressure : / mmHG Vent. Rate : 063 BPM Atrial Rate : 063 BPM P-R Int : 164 ms QRS Dur : 082 ms QT Int : 420 ms P-R-T Axes : 042 027 048 degrees QTc Int : 429 ms Normal sinus rhythm Normal ECG When compared with ECG of 05-JAN-2020 00:17, (unconfirmed) T wave inversion no longer evident in Inferior leads Confirmed by Allan Hearn ([id number]) on 01/05/2020 11:19:26 AM Referred By: REFERRED SELF Confirmed By:Prasanna Hearn
[2020-01-05] MEDS ORDERED: niCARdipine HCL INJ 2.5 MG/ML 10 ML AMP ONE (11:30)
[2020-01-05] MEDS ORDERED: fentaNYL citrate 100 MCG/2 ML VIAL ONE (11:30)
[2020-01-05] MEDS ORDERED: MIDAZOLAM HCL 1 MG/ML 2ML VIAL ONE (11:30)
[2020-01-05] MEDS ORDERED: HEPARIN (PORCINE) 1000 UNIT/ML 10 ML (CATH LAB USE ONLY) ONE (11:30)
[2020-01-05] MEDS ORDERED: NITROGLYCERIN/D5W 100MCG/ML 20ML SYR ONE (11:31)
--- NOTE | 2020-01-05 12:22 | Cardiac Catheterization ---
Date of Service January 05, 2020 Cardiac Cath Report Cardiac Cath Report Procedure: 1. Left heart catheterization 2. Coronary angiography 3. Left ventriculogram History: This is a 59-year-old female with no prior history of heart disease who presented with chest pain, no significant EKG changes and an elevation in her troponin consistent with a non-STEMI infarct. Procedure summary: After informed consent was obtained the patient was taken to the cardiac catheterization lab where she was prepped and draped in usual manner for right transradial approach. Preformed 5 [place] diagnostic catheters were utilized for the coronary angiograms. A 5 [place] pigtail catheter was utilized for the left heart pressures and left ventriculogram. Following the procedure the patient was returned to her room in stable condition. ACC data: Start time 11:53 AM End time 12:12 PM Opening aortic pressure 151/98 Closing aortic pressure 185/107 Left ventricular pressure 178/16 Sedation 2 mg intravenous Versed IV fluid 48 cc normal saline Contrast 105 cc Optiray Fluoroscopy time 4.7 minutes Radiation 1000 mGy DAP 97.73 centigrade per meter squared Right dominant system AUC score 9 Coronary angiography: Selective injections of the left coronary artery reveal the left main trunk to be smooth appearance widely patent and within normal limits. The LAD bifurcates into a large diagonal which is equally as large as the main LAD both of which extend all the way to the apex of the heart. The LAD system is smooth in appearance widely patent and within normal limits. The left circumflex artery consists of a single large anterior lateral marginal branch which is widely patent and within normal limits. Injections into the right coronary artery revealed to be dominant. The right coronary artery is smooth appearance widely patent and within normal limits. Left ventriculogram: The left ventricle is of normal size with normal systolic function. The mitral valve is competent. The aortic root and ascending aorta have normal morphology and diameter. Summary: Patient has widely patent coronary anatomy and normal LV function Recommendations: Are for continued risk factor modification.
[2020-01-05] MEDS: SODIUM CHLORIDE 0.9% 1000ML 1,000 ML IV SCH (12:57)
--- NOTE | 2020-01-05 16:28 | Communication Note ---
Date of Service: January 05, 2020 Cardiac catheterization reveals normal coronary arteries without obstruction. Troponin continues to elevate Still with vague chest discomfort. Upon further questioning patient denies any history of rheumatoid arthritis, however, she has undergone bilateral hip replacements at an early age. She states that her sister recently tested positive for lupus. Denies any recent tick bites. We will check rheumatologic work-up including rheumatoid factor, JOCY, sed rate and INSOLE AND OUTSOLE SPLITTER. We will check CT of the chest given the increased aortic diameter. We will also check MRI of the chest for definitive diagnosis of aortitis. We will start ibuprofen now for discomfort.
--- NOTE | 2020-01-05 16:51 | CT Scan Report ---
CT chest wo con CT DOSE: 588.36 mGy.cm CLINICAL HISTORY: 59 years-old Female with chest pain. Acute atypical chest pain with clinical thai rn for acute aortitis. TECHNIQUE: Multiaxial CT images of the chest were performed without contrast. A dose lowering techni que was utilized adhering to the principles of ALARA. COMPARISON: Chest radiograph 01/04/2020 FINDINGS: Unremarkable thyroid. Trace amount of fluid within the pericardial space. The heart is normal in size . Fusiform dilation of the ascending thoracic aorta measures 4.4 x 4.2 cm. Bovine morphology of the t horacic aortic arch. No evidence of thoracic aortic rupture. Limited evaluation without the use of IV contrast. No adenopathy mild dependent subsegmental bibasilar atelectasis. No pneumothorax, pleural effusion, overt pulmonary edema or airspace consolidation typical for pneumonia. 5 mm fissural nodule of the right lung base on image 178 series 4 suggests probable lymph node. Central airways are paten t. Moderate hiatal hernia with mild mid and distal esophageal wall thickening. Trace fluid is noted with in the hernia sac. Unremarkable soft tissues. The bones are intact. No acute fracture. IMPRESSION: 1. Fusiform aneurysmal dilation of the ascending thoracic aorta, 4.4 x 4.2 cm. Evaluation is limited without the use of IV contrast, however there is no appreciable aortic wall thickening or evidence of rupture. 2. Moderate sized hiatal hernia with mild mid and distal esophageal wall thickening. Trace fluid is n oted within the hernia sac. 3. 5 mm fissural nodule of the right lung base is suggestive of a probable lymph node. Please refer to below summary of Fleischner criteria recommendations for follow-up of incidental CT n odules (Edmund Vega, Guidelines for management of small pulmonary nodules detected on CT scans: A sta tement from the Fleischner Society, Radiology 237: [phone].) SOLID NODULES Solitary nodule size: <6 mm * Low risk patients: no follow-up needed * high risk patients: optional CT at 12 months Note: newly detected indeterminate nodule in persons 35 years of age or older. * Low risk patients: minimal or absent history of smoking and/or other known risk factors * high risk patients: history of smoking or of other known risk factors (e.g. first degree relative with lung cancer, or exposure to asbestos, radon, uranium) * if a nodule up to 8 mm is partly solid or is ground glass further follow-up is required after 24 m onths to exclude possible slow growing adenocarcinoma (SUSU) The above report was generated using voice recognition software. It may contain grammatical, syntax o r spelling errors. ACT 112: Negative or not required by law. Electronically signed by: Colin Ellison M.D. 01/05/2020 4:50 PM
[2020-01-05 17:18] LABS: Albumin Level 3.6 gm/dl (3.4-5.0); Aspartate Aminotransferase 103 U/L (15-37); Blood Urea Nitrogen 13 mg/dl (7-18); Calcium 8.9 mg/dl (8.5-10.1); Carbon Dioxide 28 mmol/L (21-32); Chloride 109 mmol/L (98-107); Creatinine Clr Calc Pharmacy 67.6 ml/min; Est GFR (African American) 67.5; Est GFR (Non-African American) 58.2; Glucose 90 mg/dl (70-99); Potassium 3.9 mmol/L (3.5-5.1); Sodium 140 mmol/L (136-145)
[2020-01-05 17:28] LABS: Alanine Aminotransferase 44 U/L (12-78); Albumin Globulin Ratio 0.9 (0.9-2); Alkaline Phosphatase 86 U/L (45-117); Bilirubin,Total 0.3 mg/dl (0.2-1); C Reactive Protein < 0.29 mg/dl (0-0.29); Total Protein 7.6 gm/dl (6.4-8.2)
--- NOTE | 2020-01-05 18:06 | Magnetic Resonance Report ---
MRI OF THE CHEST WITHOUT CONTRAST CLINICAL HISTORY: chest pain/rule out aortitis COMPARISON STUDY: Chest CT January 05, 2020. TECHNIQUE: Utilizing a 1.5 Kimberlee magnet and dedicated coil, multiplanar, multi echo imaging of the ch est was performed without intravenous contrast. FINDINGS: The heart is mildly enlarged. No pericardial effusion is present. Thoracic aorta is subopti yuly assessed on this unenhanced examination but there is no aortic wall thickening to suggest aorti tis. No mediastinal fluid is noted. Sensitivity for detection of thoracic aortic dissection is dimini shed but no dissection flap is identified. Ascending aorta is ectatic, measuring 4.4 x 3.9 cm at the level of the main pulmonary artery. No enlarged thoracic lymph nodes are identified by MRI. A moderat e sized hiatal hernia is noted. There is no pleural effusion. Borderline splenomegaly is incidentally noted. IMPRESSION: 1. Dilatation of the ascending aorta, measuring 4.4 x 3.9 cm at the level of the main pulmonary arter y. 2. Suboptimal evaluation of the thoracic aorta on this unenhanced exam but no MRI evidence for aortit is or dissection. 3. Mild cardiomegaly. 4. Moderate sized hiatal hernia. ACT 112: Negative or not required by law. Electronically signed by: Joseph Mckeon M.D. 01/05/2020 6:05 PM
[2020-01-05 18:10] LABS: Lyme Ab IgG w/WB Rflx Negative (Negative); Lyme Ab IgM w/WB Rflx Negative (Negative)
--- NOTE | 2020-01-05 18:10 | Hospitalist Progress Note ---
Date of Service January 05, 2020 Assessment & Plan (1) Chest pain: no evidence of KS or acute coronary event Cardiac cath widely patent coronaries echo no wall motion abnormality Cardiology following Elevated Troponin : non cardiac , patent coronaries noted in cardiac cath ordered for CT chest to rule out other pathology Disposition : possible Dc tomorrow if remains medically stable Admission and Anticipated Discharge Date Admission Date: January 05, 2020 Subjective no complain of chest pain or SOB Review of Systems Review of Systems: All systems reviewed & are unremarkable except as noted in HPI & below Physical Exam Constitutional: WD/WN, vitals as above Eyes: PERRL, conjunctivae normal, anicteric sclerae ENMT: external ear and nose normal, oropharynx normal Neck: trachea midline, no thyromegaly Respiratory: normal respiratory effort, lungs clear to auscultation Cardiovascular: RRR, no murmur, no edema Gastrointestinal (Abdomen): normal bowel sounds, soft, nontender, no hepatosplenomegaly Musculoskeletal: no cyanosis or clubbing, extremities motor strength 5/5 Skin: no rashes, warm and dry Neurologic: PERRL, EOMI, accommodation nl, no face palsy, no dysarthria Psychiatric: A+Ox3, euthymic affect Results & Data Results & Data ([facility]) Vital Signs (Past 12 Hours) Vital Signs Temp Pulse Pulse Resp BP Pulse Ox 01/05/20 16:09 36.5 C 70 22 149/88 H 96 01/05/20 15:23 69 14 139/84 97 01/05/20 14:54 54 L 01/05/20 14:31 56 L 14 154/86 H 95 01/05/20 13:31 52 L 14 154/96 H 96 01/05/20 13:24 57 L 01/05/20 13:01 55 L 14 154/96 H 96 01/05/20 12:33 59 L 17 174/108 H 95 01/05/20 12:31 36.7 C 57 L 14 151/86 H 01/05/20 12:20 63 17 163/101 H 95 01/05/20 11:14 60 17 159/96 H 97 01/05/20 07:48 36.9 C 71 18 148/87 H 97 01/05/20 07:00 67
[2020-01-05] MEDS: IBUPROFEN 600 MG TAB PO SCH ×2 (18:11→20:31)
[2020-01-05] MEDS ORDERED: SERTRALINE HCL 50 MG TABLET PO SCH (21:00)
[2020-01-06] MEDS: SODIUM CHLORIDE 0.9% 1000ML 1,000 ML IV SCH (01:32)
[2020-01-06 04:04] VITALS: TEMP 97.9
[2020-01-06] MEDS: LEVOTHYROXINE SODIUM 137 MCG TABLET PO SCH (05:35)
[2020-01-06 07:20] LABS: Chol HDL Ratio 3; Cholesterol 227 mg/dl (0-200); HDL Cholesterol 79 mg/dl; LDL Cholesterol Calculated 132 mg/dl; Triglycerides 81 mg/dl (0-150); VLDL Cholesterol 16 mg/dl
[2020-01-06 07:30] VITALS: BP 138/82; O2SAT 95
--- NOTE | 2020-01-06 08:19 | Communication Note ---
Date of Service: January 06, 2020 CT chest w/out contrast on 01/05/20 ( pt received contrast dye for cardiac cath earlier ) : Fusiform aneurysmal dilation of the ascending thoracic aorta, 4.4 x 4.2 cm. Evaluation is limited without the use of IV contrast, however there is no appreciable aortic wall thickening or evidence of rupture. pt remains asymptomatic , no chest pain or SOB vascular surgery consulted Lynne Durham MD
[2020-01-06] MEDS: CHOLECALCIFEROL 1,000 UNITS 25 MCG TAB PO SCH (08:32)
[2020-01-06] MEDS: METOPROLOL TARTRATE 25 MG TAB PO SCH (08:32)
[2020-01-06] MEDS: MULTIVITAMIN TAB PO SCH (08:32)
[2020-01-06] MEDS: PANTOprazole 40 MG TAB PO SCH (08:32)
[2020-01-06] MEDS: ASPIRIN 81 MG ECTAB PO SCH (08:32)
[2020-01-06] MEDS: IBUPROFEN 600 MG TAB PO SCH (08:33)
[2020-01-06] MEDS: ATORVASTATIN 40 MG TAB PO SCH (08:33)
--- NOTE | 2020-01-06 10:42 | Cardiology Progress Note ---
Date of Service January 06, 2020 Assessment & Plan (1) Non-ST elevation CT (NSTEMI): (2) GERD (gastroesophageal reflux disease): (3) History of right hip replacement: Ischemic work-up unremarkable including clean coronaries by cardiac catheterization despite an elevated troponin level. Medical history concerning for possible rheumatologic disorder given history of bilateral hip replacements at a young age, family history of hip replacements at a young age and his sister was recently diagnosed with possible lupus. Rheumatologic blood work sent, pending at this time. CT and MRI of the chest performed to rule out aortopathy, unremarkable except for mild enlargement of the ascending aorta 4.4 cm. No cardiac source for troponin elevation or chest pain found. Recommend follow-up with PCP to complete rheumatologic work-up. Recommend treatment for GERD with PPI. Follow-up with cardiology in 6 months to follow a sending aortic aneurysm including a resting echocardiogram. My office will call to arrange. Admission and Anticipated Discharge Date Admission Date: January 05, 2020 Subjective Patient seen and examined, chart reviewed. States that she feels well except for some slight caffeine withdrawal. Chest pain resolved overnight with addition of ibuprofen. Denies any shortness of breath, palpitations, lightheadedness, dizziness or syncope. Telemetry reviewed: Normal sinus rhythm without arrhythmia. Review of Systems Review of Systems: All systems reviewed & are unremarkable except as noted in HPI & below Physical Exam Physical Exam: Physical Exam: General: Awake, alert and oriented x 3. No acute distress. HEENT: Normocephalic, atraumatic. Pupils equal, round and reactive to light and accommodation. Extraocular muscles are intact. Anicteric sclera. Moist mu cous membranes. Neck: No JVD. No bruit. Cardiovascular: Regular. No S-4. Normal S-1 and S-2. No S-3. No murmurs, rubs or gallops. Pulmonary: Clear to auscultation bilaterally. No rales, rhonchi, or wheezing. Abdomen: Bowel sounds x 4, soft. No rebound, guarding or tenderness. No organomegaly. Extremities: No clubbing, cyanosis or edema. +2 pedal pulses bilaterally. Skin: Warm and dry. Results & Data ([facility]) Vital Signs (Past 12 Hours) Vital Signs Temp Pulse Pulse Resp BP Pulse Ox 01/06/20 07:37 67 01/06/20 07:29 36.6 C 71 18 138/82 95 01/06/20 04:02 36.6 C 62 16 122/76 98 01/05/20 23:09 37.2 C 64 16 133/88 94 01/05/20 22:56 64
[2020-01-06 11:26] VITALS: PULSE 71
--- NOTE | 2020-01-06 12:11 | Hospitalist Progress Note ---
Date of Service January 06, 2020 Assessment & Plan (1) Chest pain: no evidence of [place] or acute coronary event Cardiac cath widely patent coronaries echo no wall motion abnormality Cardiology following no recurrence of chest pain since admission Elevated Troponin : non cardiac , patent coronaries noted in cardiac cath stated on NSAID for possible pericarditis , also ordered for inflammatory /Rheumatoid disease markers -Hx of Sister -Lupus /Grandfather -AAA pt will be followed by PCP in clinic for the lab results may need Rheumatolgy follow up if appropriate depending on lab result stable to be discharged home today Ascending aortic aneurysm: incidental finding in CT chest out pt follow up with Cardiology for repeat ECHO in 6 months for surveillance Disposition : discharge to home today lab finding, CT and MRI finding explained to pt , all questions answered . Admission and Anticipated Discharge Date Admission Date: January 05, 2020 Subjective no complain of chest pain or SOB feels fine stable to be discharged home by Cardiology Physical Exam Constitutional: WD/WN, vitals as above Eyes: PERRL, conjunctivae normal, anicteric sclerae ENMT: external ear and nose normal, oropharynx normal Neck: trachea midline, no thyromegaly Respiratory: normal respiratory effort, lungs clear to auscultation Cardiovascular: RRR, no murmur, no edema Gastrointestinal (Abdomen): normal bowel sounds, soft, nontender, no hepatosplenomegaly Musculoskeletal: no cyanosis or clubbing, extremities motor strength 5/5 Skin: no rashes, warm and dry Neurologic: PERRL, EOMI, accommodation nl, no face palsy, no dysarthria Psychiatric: A+Ox3, euthymic affect Results & Data Results & Data ([facility]) Vital Signs (Past 12 Hours) Vital Signs Temp Pulse Pulse Resp BP Pulse Ox 01/06/20 11:24 36.6 C 71 18 138/82 95 01/06/20 07:37 67 01/06/20 07:29 36.6 C 71 18 138/82 95 01/06/20 04:02 36.6 C 62 16 122/76 98
--- NOTE | 2020-01-06 12:48 | Electrocardiogram Report ---
Test Reason : Blood Pressure : / mmHG Vent. Rate : 064 BPM Atrial Rate : 064 BPM P-R Int : 160 ms QRS Dur : 082 ms QT Int : 404 ms P-R-T Axes : 042 022 058 degrees QTc Int : 416 ms Normal sinus rhythm Normal ECG When compared with ECG of 05-JAN-2020 07:09, No significant change was found Confirmed by Allan Hearn ([id number]) on 01/06/2020 12:48:44 PM Referred By: REFERRED SELF Confirmed By:Prasanna Hearn
--- NOTE | 2020-01-06 17:37 | Discharge Summary ---
Date of Service January 06, 2020 Admission HPI Per Admitting Provider DICTATED BY: Олег Harris MD DATE OF ADMISSION: 01/05/2020 CHIEF COMPLAINT: Chest pain. HISTORY OF PRESENT ILLNESS: This is a 59-year-old female with past medical history significant for hypothyroidism, depression, who comes with chest discomfort. The patient says she was doing trick and treat for Halloween and she was sitting in a chair and having wine, she suddenly felt pain in her chest, tightness, radiating to the neck and jaw and pain in the teeth, moderate in severity. She has hx of heartburn, but it did felt different. She took aspirin at home, but did not subside, so she came to the ER. In the ER, she was given aspirin and also famotidine,Reglan and GI cocktail and currently pain is resolved, but her second troponin came back as mildly elevated. The patient currently feeling fine. Denies any headache, no dizziness, no blurred vision, no earache, no runny nose, no sore throat, no cough, no shortness of breath, no nausea, no abdominal pain currently, was nauseous when she came in, no diarrhea, no constipation. Normal bladder movements. No blood in the stools or black stools.Before this episode happened, she was fine and there was no chest pain with ambulating or exertion. Principal Diagnosis Chest pain /non cardiac Discharge Exam Constitutional WD/WN, vitals as above Eyes PERRL, conjunctivae normal, anicteric sclerae ENMT external ear and nose normal, oropharynx normal Neck trachea midline, no thyromegaly Respiratory normal respiratory effort, lungs clear to auscultation Cardiovascular RRR, no murmur, no edema Gastrointestinal (Abdomen) normal bowel sounds, soft, nontender, no hepatosplenomegaly Musculoskeletal no cyanosis or clubbing, extremities motor strength 5/5 Skin no rashes, warm and dry Neurologic PERRL, EOMI, accommodation nl, no face palsy, no dysarthria Psychiatric A+Ox3, euthymic affect Discharge Data Allergies Allergy/AdvReac Type Severity Reaction Status Date / Time meloxicam Allergy Mild Rash Verified 01/04/20 22:16 Sulfa (Sulfonamide Allergy Mild Rash Verified 01/04/20 22:16 Antibiotics) Consultations 01/05/20 00:22 ED Decision to Admit Stat 01/05/20 01:36 Consult Case Management - Discharge Planning Routine 01/05/20 08:00 Consult Cardiology Routine Procedures Performed Operation Date: 01/05/20 11:00 Actual Procedures p Cath, Left with Cors and Vent - Shlomo Romero DO s Cineradiography w/Routine Exam - Shlomo Romero DO Ordered Studies 01/05/20 08:31 CL Cath Imgs for PACS use only Stat 01/05/20 16:10 MR chest wo con Routine 01/05/20 16:28 CT chest wo con Urgent Hospital Course (1) Chest pain: no evidence of [place] or acute coronary event Cardiac cath widely patent coronaries echo no wall motion abnormality Cardiology following no recurrence of chest pain since admission Elevated Troponin : non cardiac , patent coronaries noted in cardiac cath stated on NSAID for possible pericarditis , also ordered for inflammatory /Rheumatoid disease markers -Hx of Sister -Lupus /Grandfather -AAA pt will be followed by PCP in clinic for the lab results may need Rheumatolgy follow up if appropriate depending on lab result stable to be discharged home today Ascending aortic aneurysm: incidental finding in CT chest out pt follow up with Cardiology for repeat ECHO in 6 months for surveillance Disposition : discharge to home today lab finding, CT and MRI finding explained to pt , all questions answered . Total Time Total Time Spent Total Time Spent (In Minutes): 35mins Total Time Includes: Discharge Planning, Medication Reconciliation and Communication With Other Providers Discharge Plan Discharge Items Patient Disposition: Home - Self-Care Reason For Visit: CHEST PAIN Discharge Diagnosis: chest pain non cardiac Activity: Resume your previous activity Non-emergency contact: Primary Care Provider Call non-emergency contact if: you have any medication questions Follow-up/Referrals: Doug Santoyo DO [Physician] - Sohan Downey MD [Primary Care Provider] - (Date & Time 01/09/2020 11:00 AM Provider Sohan Downey III, MD Department [facility] PLEASE NOTE: YOUR PREVIOUSLY SCHEDULED SHINGLES VACCINATION CAN BE GIVEN AT YOUR FOLLOW UP APPOINTMENT AT 11am. NO NEED TO COME IN AT SEPARATE TIME.) Diet: Heart Healthy Addtl Attending Provider Instructions: cardiology follow up , office will call with appointment Follow-up with Dr Downey for complete rheumatologic work-up. Follow-up with cardiology in 6 months to follow up for aortic aneurysm repeat echocardiogram in 6 months ACTIVITY RECOMMENDATIONS: Excess manipulation of the wrist should be avoided for the next 24-48 hours. * No lifting over 2 pounds (approximately a 1/2 gallon of milk) with the utilized arm for 24 hours. * No strenuous activity such as bowling or tennis for 3 days. * Keep the site of the procedure covered with a bandage for 24 hours. *You may shower the day after the procedure. Do not take a tub bath or submerge the puncture site in water for the next 3 days. *Do not operate any motorized equipment for 3 days. SPECIAL CARE INSTRUCTIONS: The site may be slightly bruised and sore following your procedure. Should any of the following occur, contact the Dr. who performed your procedure. 1. Redness/inflammation, swelling, chills, or fever, or colored drainage at procedure site within 3-7 days after your procedure. 2. Coldness, discoloration, ongoing numbness, severe pain, or swelling. Expect mild tingling of hand and tenderness at the puncture site for up to three days. If this persists beyond three days, or other symptoms develop, notify the Dr. who performed your procedure. BLEEDING: If the procedure site on your wrist begins to bleed, do not panic 1. Place 1 or 2 fingers firmly just slightly above the insertion site to stop the bleeding. You may be able to feel your pulse as you hold pressure. 2. Lift your finger after 5 minutes to see if the bleeding has stopped. 3. Once the bleeding has stopped, gently wipe the wrist area clean with a bandage. * If the bleeding from your wrist does not stop after 10 minutes, or if there is a large amount of bleeding or spurting, call 911 ([address] not drive yourself to the [facility]). SKIN IRRITATION: * You may experience some redness and/or swelling in the area where radiation was administered. If any skin irritation occurs, please contact your family physician. FOLLOW UP VISIT: Keep any scheduled doctor appointments. Pending Studies at Discharge: No Stand-Alone Forms: [employer], Smoking Cessation Medications and DC Order Prescriptions: New aspirin 81 mg Tablet,Delayed Release (Dr/Ec) 81 mg PO DAILY 30 Days Qty: 30 RF: 0 ibuprofen 600 mg Tablet 600 mg PO TID 3 Days Qty: 9 RF: 0 metoprolol tartrate 25 mg Tablet 12.5 mg PO BID 30 Days Qty: 30 RF: 0 Continued multivitamin Tablet 1 tab PO DAILY RF: 0 levothyroxine 137 mcg Tablet 137 mcg PO QAM RF: 0 sertraline [Zoloft] 100 mg Tablet 150 mg PO HS RF: 0 Calcium 600 + D(3) 600 mg calcium- 200 unit Capsule 1 cap PO DAILY RF: 0 omeprazole 20 mg Tablet,Delayed Release (Dr/Ec) 20 mg PO QAM RF: 0 cholecalciferol (vitamin D3) [Vitamin D3] 2,000 unit Capsule 2,000 unit PO DAILY RF: 0 melatonin 3 mg Capsule 3 mg PO HS PRN (Reason: Sleep) RF: 0 fish,bora,flax oils-[id number] [Triple [place] 3-6-9] 400-400-400 mg Capsule 1 cap PO DAILY RF: 0 amoxicillin 500 mg tablet 2,000 mg PO .PRN/UD RF: 0 Discharge Orders: Discharge Order (Routine); Ordered 01/06/20 Ordered By: Lynne Mckeon/Other Patient Handouts: Tips for Using Less Salt, Low-Salt Choices, Cholesterol Lifestyle Changes, Cardiac Catheterization Dc, Eating Heart-Healthy Foods Admission Data Admit Date/Time: 01/05/20 00:59 Attending Provider: Lynne Durham Admit Provider: Олег Harris Primary Care Provider: Sohan Downey Other Providers: Олег Harris ; Doug Santoyo ; Honorio Garcia ; Shawn Wolfe ; Jah Mo ; HeatherShlomo page ; Eligio Thompson ; Elva Sullivan ; Anisha Whitman ; Subhash Cano Other Interventions: Discharge Summary Assessment (RN) Last Done: 01/06/20 11:24
[2020-01-09 02:44] LABS: Rheumatoid Factor <14 IU/mL (<14)
== END 2020-01-06 12:36 | disposition home or self-care (01) | DRG 287 ==
LOC: ED 21:09 → 2S 01-05 00:59 → SUATTDRO 01-05 00:59 → 2S 01-05 01:34
DX: K21.9 Gastro-esophageal reflux disease without esophagitis; E03.9 Hypothyroidism, unspecified; D64.9 Anemia, unspecified; F41.9 Anxiety disorder, unspecified; F32.9 Major depressive disorder, single episode, unspecified; R07.89 Other chest pain